=== PATIENT | male | born 1965 | race Caucasian/White ===

== ENCOUNTER → 2018-12-09 08:24 | Outpatient (CLI) | payer OTHER, MEDICAID, SELFPAY ==
[2018-12-09 09:46] LABS: Add Manual Diff / Slide Review NO; Basophils Absolute Auto 100 /uL (0-100); Basophils Percent Auto 0.5 % (0-2); Eosinophils Absolute Auto 0 /uL (0-450); Eosinophils Percent Auto 0.2 % (2-4); Hematocrit 40.8 % (41-53); Hemoglobin 13.7 g/dL (13.5-17.5); Lymphocytes Absolute Auto 1600 /uL (1100-4500); Lymphocytes Percent Auto 14.4 % (25-40); Mean Corpuscular HGB Conc 33.7 % (30-36); Mean Corpuscular Hemoglobin 29.3 PG (26-34); Mean Corpuscular Volume 87.1 fL (80-100); Monocytes Absolute Auto 700 /uL (0-900); Monocytes Percent Auto 6.6 % (3-14); Neutrophils Absolute Auto 8700 /uL (1500-7000); Neutrophils Percent Auto 78.3 % (50-75); Platelet Count 289 X10^3/uL (150-400); Red Blood Cell Count 4.69 X10^6/uL (4.5-5.9); Red Cell Distribution Width 13.1 % (11.6-14.8); White Blood Cell Count 11.2 X10^3/uL (4.5-11.0)
[2018-12-09 10:11] LABS: Alanine Aminotransferase 27 IU/L (21-72); Albumin 4.5 g/dL (3.5-5.0); Albumin Globulin Ratio 1.7 (1.0-2.8); Alkaline Phosphatase 76 U/L (38-126); Aspartate Aminotransferase 31 IU/L (17-59); BUN Creatinine Ratio 21.7 (6-22); Bilirubin Total 0.4 mg/dL (0.2-1.3); Blood Urea Nitrogen 13 mg/dL (9-20); Calcium 9.3 mg/dL (8.4-10.2); Carbon Dioxide 26 mmol/L (22-32); Chloride 99 mmol/L (98-107); Estimated Glomerular Filt Rate > 60.0 mL/min (>60); Globulin 2.7 g/dL (1.7-4.1); Glucose 87 mg/dL (70-100); HEMOLYSIS 40 (0-50); Potassium 4.6 mmol/L (3.4-5.1); Sodium 137 mmol/L (137-145); Total Protein 7.2 g/dL (6.3-8.2)
[2018-12-09 10:43] LABS: Hepatitis B Surface Antigen NEGATIVE s/c (NEGATIVE)
[2018-12-09 12:38] LABS: Hep C Virus Ab w/Reflex Quant REACTIVE s/c (NEGATIVE)
[2018-12-10 15:13] LABS: Hepatitis A Antibody IgM Nonreactive (Nonreactive); Hepatitis B Core IgM Nonreactive (Nonreactive); Hepatitis B Surf Ab Qualitativ Reactive (Nonreactive)
== END ==
PROVIDERS: Visit Provider Family Medicine
DX: Z13.818 Encounter for screening for other digestive system disorders (principal); Z13.228 Encounter for screening for other metabolic disorders; Z11.59 Encounter for screening for other viral diseases
CPT/HCPCS: 36415; 80053; 85025; 86705; 86706; 86709; 86803; 87340; 87522

== ENCOUNTER 2018-12-29 09:57 | Emergency (ER) | payer OTHER, MEDICAID, SELFPAY ==
[2018-12-29 10:09] VITALS: BP 131/81; PULSE 80; RESP 14; TEMP 36.5; O2SAT 99; BMI 26.6
[2018-12-29 11:16] VITALS: BP 124/72; PULSE 80; RESP 16; O2SAT 99
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
[2018-12-29 12:00] VITALS: BP 116/75; PULSE 70; RESP 17; O2SAT 100
[2018-12-29 13:00] VITALS: BP 115/75; O2SAT 97
--- NOTE | 2018-12-29 13:13 | PC.NURSE ---
Applied bandage per provider order.
== END 2018-12-29 13:14 | disposition home or self-care (01) ==
PROVIDERS: Emergency Provider Emergency Medicine
DX: L02.415 Cutaneous abscess of right lower limb (principal)
CPT/HCPCS: 10060; 87070; 87075; 87077; 87147; 87186; 87205; 99283

== ENCOUNTER → 2021-11-03 13:05 | Outpatient (CLI) | payer OTHER, MEDICAID, SELFPAY ==
--- NOTE | 2021-11-03 | DI.ECHO.S_ITS ---
[facility]---------+ [facility] +---------+ : : [address] : : : : [place] : : : : [id number] : : : : Phone: [phone]---------+ Echocardiogram Report + + :Name: WALTER BROOKS Study Date: 11/03/2021 Height: 69 in : :[facility] ReadingLocation: Weight: 187 lb : : Gender: Male BSA: 2.0 m2 : :: 1965 Age: 56 yrs BP: 124/85 mmHg: :Reason For Study: Abnormal ECG : : Performed By: Kingston Caraballo : :Referring: UNSPECIFIED : + + Interpretation Summary The left ventricle is normal in size and wall thickness. The ejection fraction is estimated to be 60-65%. The right ventricle is normal in size and function. No significant valvular pathology seen. The aortic arch is mildly enlarged. Procedure: A two-dimensional transthoracic echocardiogram with color flow and Doppler was performed. The study quality was technically adequate. There is no prior echocardiogram noted for this patient. The subcostal views were not obtained due to poor window and patient could not tolerate. The patient was in normal sinus rhythm during the exam. Left Ventricle: The left ventricle is normal in size and wall thickness. A false chord is noted (normal variant). Trabeculae near apex are visualized. No thrombus is observed. The ejection fraction is estimated to be 60-65%. There are no focal wall motion abnormalities. Diastolic parameters suggest a relaxation abnormality of the left ventricle, consistent with probable normal filling pressures. Right Ventricle: The right ventricle is normal in size and function. Atria: The left atrial size is normal. Right atrial size is normal. There is no Doppler evidence for an interatrial shunt. Mitral Valve: The mitral valve is normal. There is no mitral regurgitation noted. Aortic Valve: The aortic valve is trileaflet. The aortic valve opens well. There is no aortic valve stenosis. No aortic regurgitation is present. Tricuspid Valve: The tricuspid valve is normal. Pulmonary artery pressures cannot be estimated because of the lack of a measurable TR jet velocity. There is trace tricuspid regurgitation. Pulmonic Valve: The pulmonic valve is normal in structure and function. Great Vessels: The aortic root is normal size. The ascending aorta is normal in size. The aortic arch is mildly enlarged. The inferior vena cava was not visualized. Pericardium/ Pleura There is no pericardial effusion. There is an anterior echo-free space consistent with a fat pad. There is no pleural effusion. MMode/2D Measurements & Calculations LVIDd: 4.8 cm LVOT diam: 2.4 cm LVIDs: 2.8 cm Ao root diam: 3.3 cm FS: 41.6 % asc Aorta Diam: 3.4 cm IVSd: 1.0 cm Ao Arch Diam (Prox Trans): 3.7 cm LVPWd: 0.80 cm LV tracey. diameter/BSA (cm/m^2): 2.4 LV sys. diameter/BSA (cm/m^2): 1.4 LA A2 area: 14.9 cm2 RA long axis: 4.6 cm LA A4 area: 10.9 cm2 RA area: 13.7 cm2 LA length (vol): 4.5 cm RA vol: 35.2 ml LA vol: 30.7 ml RA : 17.5 ml/m2 LA vol index: 15.3 ml/m2 TAPSE: 1.9 cm Doppler Measurements & Calculations Ao V2 max: 143.5 cm/sec LVOT Max Jose M: 127.0 cm/sec Ao V2 mean: 104.9 cm/sec LV V1 max P.5 mmHg Ao max P.2 mmHg LV V1 VTI: 25.1 cm Ao mean P.8 mmHg JESSICA(I,D): 4.1 cm2 Ao V2 VTI: 27.5 cm JESSICA(V,D): 3.9 cm2 sev ratio: 0.91 JESSICA indexed to BSA (cm^2/m^2): 2.0 MV E max jose m: 60.3 cm/sec PA V2 max: 96.7 cm/sec MV A max jose m: 63.2 cm/sec PA V2 mean: 77.0 cm/sec MV E/A: 0.95 PA mean P.5 mmHg Med Peak E' Jose M: 8.5 cm/sec PA pr(Accel): 25.9 mmHg E/E' med: 7.1 Lat Peak E' Jose M: 14.5 cm/sec E/E' lat: 4.1 E/e' average: 5.6 MV dec time: 0.18 sec SV(LVOT): 111.7 ml Reading Physician:03:33 PM
[2021-11-06 22:07] LABS: Hep C Virus Ab w/Reflex Quant REACTIVE s/c (NEGATIVE)
== END ==
PROVIDERS: Referring Provider Internal Medicine Cardiovascular Disease; Visit Provider Internal Medicine Cardiovascular Disease
DX: B18.2 Chronic viral hepatitis C (principal); R94.31 Abnormal electrocardiogram [ECG] [EKG]; I77.89 Other specified disorders of arteries and arterioles
CPT/HCPCS: 36415; 86803; 87522; 93306

== ENCOUNTER 2022-02-21 10:13 | Emergency (ER) | payer OTHER, MEDICAID, SELFPAY ==
[2022-02-21 10:18] VITALS: BP 145/83; PULSE 96; RESP 16; TEMP 36.7; O2SAT 100; BMI 26.6
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
[2022-02-21 11:49] LABS: Add Manual Diff / Slide Review NO; Basophils Absolute Auto 100 /uL (0-100); Basophils Percent Auto 0.4 % (0-2); Eosinophils Absolute Auto 200 /uL (0-450); Eosinophils Percent Auto 1.3 % (2-4); Hematocrit 32.4 % (41-53); Hemoglobin 10.6 g/dL (13.5-17.5); Lymphocytes Absolute Auto 2000 /uL (1100-4500); Lymphocytes Percent Auto 13.9 % (25-40); Mean Corpuscular HGB Conc 32.6 % (30-36); Mean Corpuscular Hemoglobin 25.9 PG (26-34); Mean Corpuscular Volume 79.5 fL (80-100); Monocytes Absolute Auto 1000 /uL (0-900); Monocytes Percent Auto 6.7 % (3-14); Neutrophils Absolute Auto 11300 /uL (1500-7000); Neutrophils Percent Auto 77.7 % (50-75); Platelet Count 347 X10^3/uL (150-400); Red Blood Cell Count 4.08 X10^6/uL (4.5-5.9); Red Cell Distribution Width 14.9 % (11.6-14.8); White Blood Cell Count 14.6 X10^3/uL (4.5-11.0)
[2022-02-21 12:04] LABS: Lactate (Lactic Acid) 0.9 mmol/L (0.7-2.1)
[2022-02-21 12:05] LABS: Alanine Aminotransferase 21 IU/L (<50); Albumin 3.7 g/dL (3.5-5.0); Albumin Globulin Ratio 1.1 (1.0-2.8); Alkaline Phosphatase 85 U/L (38-126); Aspartate Aminotransferase 31 IU/L (17-59); BUN Creatinine Ratio 24.6 (6-22); Bilirubin Total 0.3 mg/dL (0.2-1.3); Blood Urea Nitrogen 15 mg/dL (9-20); Calcium 8.3 mg/dL (8.4-10.2); Carbon Dioxide 28 mmol/L (22-32); Chloride 100 mmol/L (98-107); Estimated Glomerular Filt Rate > 60.0 mL/min (>60); Globulin 3.4 g/dL (1.7-4.1); Glucose 97 mg/dL (70-100); HEMOLYSIS < 15 (0-50); Potassium 4.1 mmol/L (3.4-5.1); Sodium 136 mmol/L (137-145); Total Protein 7.1 g/dL (6.3-8.2)
[2022-02-21 12:21] LABS: Procalcitonin 0.06 ng/mL (<0.5)
[2022-02-21] MEDS: ACETAMINOPHEN 325 MG TABLET 975 MG PO (12:36)
[2022-02-21] MEDS: IBUPROFEN 400 MG TABLET 800 MG PO (12:36)
[2022-02-21 13:20] VITALS: PULSE 65; O2SAT 100
[2022-02-21 13:21] VITALS: BP 115/77
[2022-02-21] MEDS: cefTRIAXone 1,000 MG in SODIUM CHLORIDE 0.9% 100 ML 200 ML IV (13:22)
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
[2022-02-21 14:05] VITALS: BP 124/71; PULSE 77; RESP 16; O2SAT 97
--- NOTE | 2022-02-21 14:06 | PC.NURSE ---
IV removed and pt ambulated out of ED with steady gait
== END 2022-02-21 14:06 | disposition left against medical advice (07) ==
PROVIDERS: Emergency Provider Emergency Medicine
DX: L02.612 Cutaneous abscess of left foot (principal); S60.222A Contusion of left hand, initial encounter; S90.852A Superficial foreign body, left foot, initial encounter; W34.00XA Accidental discharge from unspecified firearms or gun, initial encounter; X58.XXXA Exposure to other specified factors, initial encounter; Z53.29 Procedure and treatment not carried out because of patient's decision for other reasons
CPT/HCPCS: 73130; 73630; 80053; 83605; 84145; 85025; 87070; 87077; 87147; 87186; 87205; 96365; 99284; J0696

== ENCOUNTER 2023-01-17 12:35 | Inpatient (IN) | payer OTHER, MEDICAID, SELFPAY ==
[2023-01-17 12:55] VITALS: BP 121/76; PULSE 77; RESP 18; TEMP 36.9; O2SAT 100; BMI 25.8
--- NOTE | 2023-01-17 16:35 | ED_ITS ---
HPI - Skin/Abscess/Foreign Bdy <PRESLEY Zimmerman - Last Filed: 01/23/23 16:59> General Chief complaint: Skin/Abscess/Foreign Body Stated complaint: Abscess Time Seen by Provider: 01/17/23 16:24 Source: patient Mode of arrival: Ambulatory Limitations: no limitations History of Present Illness HPI narrative: This is a 57-year-old gentleman with history of marijuana, heroin, methampheta mine abuse who presents to the emergency department today with a wound to his left buttock for the last 5 days, but is very large, swollen, red and painful. He is on methadone however states that this is not helping him with his pain. He states he has a history of allergy to amoxicillin from a rash as a child states that he only had that 1 time. Also endorses history of rash with tetracycline but does not remember anything more than a rash to it. Patient endorses having a bright red tongue, states it is not super painful but it is new in it started at the same time is this large wound on his left buttock. Thinks it has 3 abscesses that have grown into one and there is underlying pus surrounded by , very red skin and edema patient can barely light on this part of himself due to the pain.There is no discharge from the wound. Patient denies fever but endorses chills. Related Data Home Medications Medication Instructions Recorded Confirmed methadone 40 mg soluble tablet 120 mg PO DAILY 12/29/18 01/17/23 Previous Rx's Medication Instructions Recorded ciprofloxacin HCl 250 mg tablet 500 mg PO 0700,2100 #50 tabs 01/21/23 sennosides 8.6 mg tablet (senna) 17.2 mg PO BEDTIME #30 tabs 01/21/23 Allergies Allergy/AdvReac Type Severity Reaction Status Date / Time amoxicillin Allergy Severe Anaphylaxis Verified 01/17/23 13:02 tetracycline Allergy Verified 01/17/23 13:02 Review of Systems <PRESLEY Zimmerman - Last Filed: 01/23/23 16:59> Review of Systems ROS Unobtainable: All systems reviewed & are unremarkable except as noted in HPI and below Patient History <PRESLEY Zimmerman - Last Filed: 01/23/23 16:59> Medical History Abscess of skin or subcutaneous tissue Heroin abuse Social History (Updated 12/29/18 @ 12:47 by Dahlia Brito DO) household members: friend(s) Smoking Status: Current every day smoker alcohol intake: current substance use type: heroin and IV drugs Smoking Status: Current every day smoker alcohol intake frequency: holidays/special occasions only Substance Use Type: marijuana, heroin and methamphetamine Exam <PRESLEY Zimmerman - Last Filed: 01/23/23 16:59> Initial Vital Signs Initial Vital Signs: Vital Signs Temperature 98.4 F 01/17/23 12:55 Pulse Rate 77 01/17/23 12:55 Respiratory Rate 18 01/17/23 12:55 Blood Pressure 121/76 01/17/23 12:55 Pulse Oximetry 100 01/17/23 12:55 Oxygen Delivery Method Room Air 01/17/23 12:55 Reviewed vitals signs and nursing notes. General: cooperative, comfortable, in no acute distress, well groomed HEENT: symmetrical facial expressions, moist mucous membranes, patient's tongue is bright red and glassy Cardiovascular: regular rate and rhythm, no peripheral edema, warm extremities Respiratory: normal effort, able to speak in complete sentences, without wheezing, stridor, or abnormal breath sounds. No retractions or tachypnea. GI: abdomen soft, nontender to palpation, nondistended, without masses, rebound tenderness or exquisite tenderness with exam. MSK: moves all extremities, neurovascularly intact, no weakness, normal tone Skin: Left buttock with large erythematous area with outline and fluctuance in the middle concerning for abscess, this is quite large involving the whole left buttock, no perigenital involvement concerning for Susy's gangrene brisk capillary refill, without pallor or erythema Neuro: normal speech and cognition, A&O x3, ambulatory, clear speech Psych: mental status is grossly normal, congruent mood, normal affect, pleasant and cooperative <Rufino Samson DO - Last Filed: 01/18/23 17:42> Initial Vital Signs Initial Vital Signs: Vital Signs Temperature 98.4 F 01/17/23 12:55 Pulse Rate 77 01/17/23 12:55 Respiratory Rate 18 01/17/23 12:55 Blood Pressure 121/76 01/17/23 12:55 Pulse Oximetry 100 01/17/23 12:55 Oxygen Delivery Method Room Air 01/17/23 12:55 <Rufino Samson DO - Last Filed: 01/18/23 17:42> Central Line Placement Right IJ: Time Out Performed: Yes Patient Placed on Monitor/Pulse Ox: Yes Prep: mask, gown and gloves Central Line Prep: Chlorhexidine scrub and sterile drapes applied Local Anesthetic: lidocaine 2% Amount of anesthesia used (mL): 3 Ultrasound Used for Placement: Yes Central Line Lumen Inserted: triple Post Procedure: good blood return, all ports aspirated, flushed, capped and sterile dressing applied Post Procedure X-Ray: tip of catheter in good position and no pneumothorax seen Patient Tolerated Procedure: Well Complications: none Course <PRESLEY Zimmerman - Last Filed: 01/23/23 16:59> Orders Ordered: Discontinued Medications Acetaminophen (Acetaminophen 325 Mg Tablet) 650 mg PO Q6H PRN PRN Reason: Fever/Mild Pain (1-3) Last Admin: 01/18/23 19:38 Dose: 650 mg Documented By: Ciprofloxacin (Ciprofloxacin 250 Mg Tablet) 500 mg PO 0700,2100 [facility] Stop: 02/02/23 23:59 Last Admin: 01/21/23 06:27 Dose: 500 mg Documented By: Admin: 01/20/23 20:24 Dose: 500 mg Documented By: Admin: 01/20/23 13:09 Dose: 500 mg Documented By: YANA Lidocaine HCl 30 ml/ Al Hydrox /Mg Hydrox/Simethicone 30 ml/Nystatin 3,000,000 unit 0 ml MM NOW ONE Stop: 01/17/23 16:33 Last Admin: 01/17/23 20:11 Dose: Not Given Documented By: GC Diphenhydramine HCl (Diphenhydramine 50 Mg/Ml Vial) 25 mg IV NOW ONE Stop: 01/17/23 16:33 Last Admin: 01/17/23 22:49 Dose: Not Given Documented By: [place] Docusate Sodium (Docusate 100 Mg Capsule) 100 mg PO BID [facility] Last Admin: 01/21/23 08:38 Dose: 100 mg Documented By: Admin: 01/20/23 20:24 Dose: 100 mg Documented By: Admin: 01/20/23 08:07 Dose: 100 mg Documented By: Admin: 01/19/23 20:42 Dose: 100 mg Documented By: Admin: 01/19/23 14:30 Dose: 100 mg Documented By: YANA Heparin Sodium (Porcine) (Heparin Flush (Cl/Picc/Mid-Line) 50 Unit/5 Ml Syringe) 50 unit IV BID ROSA M Last Admin: 01/21/23 08:44 Dose: 50 unit Documented By: Admin: 01/20/23 20:24 Dose: 50 unit Documented By: Admin: 01/20/23 08:08 Dose: 50 unit Documented By: Admin: 01/19/23 20:42 Dose: 50 unit Documented By: Admin: 01/19/23 09:39 Dose: 50 unit Documented By: Admin: 01/18/23 20:10 Dose: 50 unit Documented By: Admin: 01/18/23 09:27 Dose: Not Given Documented By: YANA Heparin Sodium (Porcine) (Heparin Flush (Cl/Picc/Mid-Line) 50 Unit/5 Ml Syringe) 50 unit IV PRN PRN PRN Reason: Flush Last Admin: 01/20/23 13:29 Dose: 100 unit Documented By: YANA Hydromorphone HCl (Hydromorphone 1 Mg Inj) 1 mg IV NOW ONE Stop: 01/17/23 16:33 Last Admin: 01/17/23 22:49 Dose: Not Given Documented By: PRITI Hydromorphone HCl (Hydromorphone 1 Mg Inj) 1 mg IM NOW ONE Stop: 01/17/23 18:11 Last Admin: 01/17/23 18:37 Dose: 1 mg Documented By: NOE Hydromorphone HCl (Hydromorphone 0.5 Mg Inj) 1 mg IV Q3H PRN PRN Reason: Pain, Severe (7-10) Hydromorphone HCl (Hydromorphone 1 Mg Inj) 1 mg IV Q3H PRN PRN Reason: Pain, Severe (7-10) Last Admin: 01/19/23 13:31 Dose: 1 mg Documented By: Admin: 01/19/23 12:34 Dose: 1 mg Documented By: Admin: 01/18/23 19:39 Dose: 1 mg Documented By: Admin: 01/18/23 07:58 Dose: 1 mg Documented By: YANA Hydromorphone HCl (Hydromorphone 2 Mg Inj) 0 mg IV Q5M PRN PRN Reason: Pain, Severe (7-10) Hydromorphone HCl (Hydromorphone 2 Mg Inj) 2 mg IV DAILY PRN PRN Reason: With dressing change Last Admin: 01/20/23 14:56 Dose: 2 mg Documented By: YANA Sodium Chloride (Normal Saline 0.9%) 1,000 mls @ 1,000 mls/hr IV BOLUS ONE Stop: 01/17/23 17:29 Last Infusion: 01/17/23 21:01 Dose: 0 mls/hr Documented By: Admin: 01/17/23 19:59 Dose: 1,000 mls/hr Documented By: GC Ceftriaxone Sodium 2,000 mg/ (Sodium Chloride) 100 mls @ 200 mls/hr IV NOW ONE Stop: 01/17/23 16:31 Last Infusion: 01/17/23 20:22 Dose: 0 mls/hr Documented By: Admin: 01/17/23 19:50 Dose: 200 mls/hr Documented By: GC Vancomycin HCl/Dextrose (Vancomycin) 2,000 mg in 400 mls @ 200 mls/hr IV NOW ONE Stop: 01/17/23 18:44 Last Infusion: 01/17/23 22:20 Dose: 0 mls/hr Documented By: Admin: 01/17/23 20:10 Dose: 200 mls/hr Documented By: GC Ceftriaxone Sodium 1,000 mg/ (Sodium Chloride) 100 mls @ 200 mls/hr IV Q24H [facility] Last Admin: 01/19/23 20:41 Dose: 200 mls/hr Documented By: Infusion: 01/18/23 19:57 Dose: 200 mls/hr Documented By: Admin: 01/18/23 19:27 Dose: 200 mls/hr Documented By: MS Sodium Chloride (Normal Saline 0.9%) 1,000 mls @ 150 mls/hr IV CONT [facility] Last Admin: 01/17/23 23:10 Dose: 150 mls/hr Documented By: MS Vancomycin HCl (Vancomycin) 1,250 mg in 250 mls @ 250 mls/hr IV Q8H [facility] Last Admin: 01/18/23 16:11 Dose: Not Given Documented By: Infusion: 01/18/23 09:27 Dose: 0 mls/hr Documented By: Admin: 01/18/23 07:47 Dose: 250 mls/hr Documented By: YANA Lactated Ringer's (Lactated Ringers) 1,000 mls @ 100 mls/hr IV NOW ONE Stop: 01/19/23 00:13 Last Admin: 01/18/23 14:14 Dose: 100 mls/hr Documented By: LU Vancomycin HCl (Vancomycin) 1,250 mg in 250 mls @ 250 mls/hr IV Q8H ROSA M Vancomycin HCl (Vancomycin) 1,250 mg in 250 mls @ 250 mls/hr IV Q8H ROSA M Vancomycin HCl (Vancomycin) 1,250 mg in 250 mls @ 250 mls/hr IV Q8H [facility] Last Admin: 01/19/23 10:42 Dose: Not Given Documented By: Infusion: 01/19/23 02:45 Dose: 250 mls/hr Documented By: Admin: 01/19/23 01:43 Dose: 250 mls/hr Documented By: Infusion: 01/18/23 18:33 Dose: 0 mls/hr Documented By: Admin: 01/18/23 16:57 Dose: 250 mls/hr Documented By: YANA Vancomycin HCl/Dextrose (Vancomycin) 1,500 mg in 300 mls @ 200 mls/hr IV Q8H [facility] Last Infusion: 01/20/23 13:08 Dose: 0 mls/hr Documented By: Admin: 01/20/23 11:33 Dose: 200 mls/hr Documented By: Infusion: 01/20/23 07:57 Dose: 0 mls/hr Documented By: Admin: 01/20/23 02:47 Dose: 200 mls/hr Documented By: Infusion: 01/19/23 19:13 Dose: 200 mls/hr Documented By: Admin: 01/19/23 17:43 Dose: 200 mls/hr Documented By: Infusion: 01/19/23 12:38 Dose: 0 mls/hr Documented By: Admin: 01/19/23 10:30 Dose: 200 mls/hr Documented By: YANA Ketorolac Tromethamine (Ketorolac 30 Mg/Ml Vial) 15 mg IV NOW ONE Stop: 01/17/23 16:41 Last Admin: 01/17/23 20:00 Dose: 15 mg Documented By: ARIELLE Lorazepam (Lorazepam 2 Mg/Ml Inj) 0.25 mg IV NOW PRN PRN Reason: Anxiety Last Admin: 01/18/23 16:15 Dose: 0.25 mg Documented By: Admin: 01/18/23 16:14 Dose: 0.25 mg Documented By: EDUAR Methadone HCl (Methadone 10 Mg Tablet) 120 mg PO DAILY ONE Stop: 01/18/23 12:01 Last Admin: 01/18/23 12:02 Dose: 120 mg Documented By: YANA Methadone HCl (Methadone 10 Mg Tablet) 120 mg PO DAILY [facility] Last Admin: 01/21/23 08:38 Dose: 120 mg Documented By: Admin: 01/20/23 10:46 Dose: 120 mg Documented By: Admin: 01/19/23 09:39 Dose: 120 mg Documented By: YANA Metoclopramide HCl (Metoclopramide 10 Mg/2 Ml Inj) 5 mg IV Q6H PRN PRN Reason: Nausea And Vomiting Naloxone HCl (Naloxone 0.4 Mg/Ml Vial) 0.2 mg IV Q2MIN PRN PRN Reason: Opiate Reversal Ondansetron HCl (Ondansetron 4 Mg/2 Ml Inj) 4 mg IV Q6HR PRN PRN Reason: Nausea And Vomiting Ondansetron HCl (Ondansetron 4 Mg/2 Ml Inj) 4 mg IV NOW PRN PRN Reason: Nausea And Vomiting Oxycodone HCl (Oxycodone Ir 5 Mg Tablet) 5 mg PO Q3H PRN PRN Reason: Pain, Moderate (4-6) Polyethylene Glycol (Polyethylene Glycol 3350 17 Gm Powd.Pack) 17 gm PO BID PRN PRN Reason: Constipation Last Admin: 01/19/23 14:30 Dose: 17 gm Documented By: YANA Sennosides (Sennosides 8.6 Mg Tablet) 17.2 mg PO BEDTIME [facility] Last Admin: 01/20/23 20:24 Dose: 17.2 mg Documented By: Admin: 01/19/23 20:42 Dose: 17.2 mg Documented By: Sodium Chloride (Sodium Chloride 0.9% Flush) 10 ml IV PRN PRN PRN Reason: Flush Sodium Chloride (Sodium Chloride 0.9% Flush) 10 ml IV BID ROSA M Last Admin: 01/21/23 08:44 Dose: 10 ml Documented By: Admin: 01/20/23 20:24 Dose: 10 ml Documented By: MARTHA Vancomycin HCl (Vancomycin Per Pharmacy) 1 request MISC NOW ONE Stop: 01/17/23 16:31 Last Admin: 01/17/23 20:11 Dose: Not Given Documented By: ARIELLE Vancomycin HCl (Vancomycin Trough) 1 request MISC 0900 ONE Stop: 01/19/23 09:01 Last Admin: 01/19/23 09:40 Dose: 1 request Documented By: YANA Vancomycin HCl (Vancomycin Trough) 1 request MISC 1000 ONE Stop: 01/20/23 10:01 Last Admin: 01/20/23 10:40 Dose: Not Given Documented By: YANA Vital Signs Vital signs: Vital Signs - 8 hr 01/17/23 12:55 01/17/23 17:01 Temperature 98.4 F Pulse Rate 77 85 Respiratory Rate 18 Blood Pressure 121/76 124/68 Pulse Oximetry 100 100 Oxygen Delivery Method Room Air Room Air <Rufino Samson DO - Last Filed: 01/18/23 17:42> Orders Ordered: Discontinued Medications Acetaminophen (Acetaminophen 325 Mg Tablet) 650 mg PO Q6H PRN PRN Reason: Fever/Mild Pain (1-3) Last Admin: 01/18/23 19:38 Dose: 650 mg Documented By: Ciprofloxacin (Ciprofloxacin 250 Mg Tablet) 500 mg PO 0700,2100 ROSA M Stop: 02/02/23 23:59 Last Admin: 01/21/23 06:27 Dose: 500 mg Documented By: Admin: 01/20/23 20:24 Dose: 500 mg Documented By: Admin: 01/20/23 13:09 Dose: 500 mg Documented By: YANA Lidocaine HCl 30 ml/ Al Hydrox /Mg Hydrox/Simethicone 30 ml/Nystatin 3,000,000 unit 0 ml MM NOW ONE Stop: 01/17/23 16:33 Last Admin: 01/17/23 20:11 Dose: Not Given Documented By: ARIELLE Diphenhydramine HCl (Diphenhydramine 50 Mg/Ml Vial) 25 mg IV NOW ONE Stop: 01/17/23 16:33 Last Admin: 01/17/23 22:49 Dose: Not Given Documented By: PRITI Docusate Sodium (Docusate 100 Mg Capsule) 100 mg PO BID [facility] Last Admin: 01/21/23 08:38 Dose: 100 mg Documented By: Admin: 01/20/23 20:24 Dose: 100 mg Documented By: Admin: 01/20/23 08:07 Dose: 100 mg Documented By: Admin: 01/19/23 20:42 Dose: 100 mg Documented By: Admin: 01/19/23 14:30 Dose: 100 mg Documented By: YANA Heparin Sodium (Porcine) (Heparin Flush (Cl/Picc/Mid-Line) 50 Unit/5 Ml Syringe) 50 unit IV BID [facility] Last Admin: 01/21/23 08:44 Dose: 50 unit Documented By: Admin: 01/20/23 20:24 Dose: 50 unit Documented By: Admin: 01/20/23 08:08 Dose: 50 unit Documented By: Admin: 01/19/23 20:42 Dose: 50 unit Documented By: Admin: 01/19/23 09:39 Dose: 50 unit Documented By: Admin: 01/18/23 20:10 Dose: 50 unit Documented By: Admin: 01/18/23 09:27 Dose: Not Given Documented By: YANA Heparin Sodium (Porcine) (Heparin Flush (Cl/Picc/Mid-Line) 50 Unit/5 Ml Syringe) 50 unit IV PRN PRN PRN Reason: Flush Last Admin: 01/20/23 13:29 Dose: 100 unit Documented By: YANA Hydromorphone HCl (Hydromorphone 1 Mg Inj) 1 mg IV NOW ONE Stop: 01/17/23 16:33 Last Admin: 01/17/23 22:49 Dose: Not Given Documented By: PRITI Hydromorphone HCl (Hydromorphone 1 Mg Inj) 1 mg IM NOW ONE Stop: 01/17/23 18:11 Last Admin: 01/17/23 18:37 Dose: 1 mg Documented By: NOE Hydromorphone HCl (Hydromorphone 0.5 Mg Inj) 1 mg IV Q3H PRN PRN Reason: Pain, Severe (7-10) Hydromorphone HCl (Hydromorphone 1 Mg Inj) 1 mg IV Q3H PRN PRN Reason: Pain, Severe (7-10) Last Admin: 01/19/23 13:31 Dose: 1 mg Documented By: Admin: 01/19/23 12:34 Dose: 1 mg Documented By: Admin: 01/18/23 19:39 Dose: 1 mg Documented By: Admin: 01/18/23 07:58 Dose: 1 mg Documented By: YANA Hydromorphone HCl (Hydromorphone 2 Mg Inj) 0 mg IV Q5M PRN PRN Reason: Pain, Severe (7-10) Hydromorphone HCl (Hydromorphone 2 Mg Inj) 2 mg IV DAILY PRN PRN Reason: With dressing change Last Admin: 01/20/23 14:56 Dose: 2 mg Documented By: YANA Sodium Chloride (Normal Saline 0.9%) 1,000 mls @ 1,000 mls/hr IV BOLUS ONE Stop: 01/17/23 17:29 Last Infusion: 01/17/23 21:01 Dose: 0 mls/hr Documented By: Admin: 01/17/23 19:59 Dose: 1,000 mls/hr Documented By: ARIELLE Ceftriaxone Sodium 2,000 mg/ (Sodium Chloride) 100 mls @ 200 mls/hr IV NOW ONE Stop: 01/17/23 16:31 Last Infusion: 01/17/23 20:22 Dose: 0 mls/hr Documented By: Admin: 01/17/23 19:50 Dose: 200 mls/hr Documented By: GC Vancomycin HCl/Dextrose (Vancomycin) 2,000 mg in 400 mls @ 200 mls/hr IV NOW ONE Stop: 01/17/23 18:44 Last Infusion: 01/17/23 22:20 Dose: 0 mls/hr Documented By: Admin: 01/17/23 20:10 Dose: 200 mls/hr Documented By: GC Ceftriaxone Sodium 1,000 mg/ (Sodium Chloride) 100 mls @ 200 mls/hr IV Q24H [facility] Last Admin: 01/19/23 20:41 Dose: 200 mls/hr Documented By: Infusion: 01/18/23 19:57 Dose: 200 mls/hr Documented By: Admin: 01/18/23 19:27 Dose: 200 mls/hr Documented By: MS Sodium Chloride (Normal Saline 0.9%) 1,000 mls @ 150 mls/hr IV CONT ROSA M Last Admin: 01/17/23 23:10 Dose: 150 mls/hr Documented By: Vancomycin HCl (Vancomycin) 1,250 mg in 250 mls @ 250 mls/hr IV Q8H ROSA M Last Admin: 01/18/23 16:11 Dose: Not Given Documented By: Infusion: 01/18/23 09:27 Dose: 0 mls/hr Documented By: Admin: 01/18/23 07:47 Dose: 250 mls/hr Documented By: YANA Lactated Ringer's (Lactated Ringers) 1,000 mls @ 100 mls/hr IV NOW ONE Stop: 01/19/23 00:13 Last Admin: 01/18/23 14:14 Dose: 100 mls/hr Documented By: LU Vancomycin HCl (Vancomycin) 1,250 mg in 250 mls @ 250 mls/hr IV Q8H ROSA M Vancomycin HCl (Vancomycin) 1,250 mg in 250 mls @ 250 mls/hr IV Q8H ROSA M Vancomycin HCl (Vancomycin) 1,250 mg in 250 mls @ 250 mls/hr IV Q8H [facility] Last Admin: 01/19/23 10:42 Dose: Not Given Documented By: Infusion: 01/19/23 02:45 Dose: 250 mls/hr Documented By: Admin: 01/19/23 01:43 Dose: 250 mls/hr Documented By: Infusion: 01/18/23 18:33 Dose: 0 mls/hr Documented By: Admin: 01/18/23 16:57 Dose: 250 mls/hr Documented By: YANA Vancomycin HCl/Dextrose (Vancomycin) 1,500 mg in 300 mls @ 200 mls/hr IV Q8H [facility] Last Infusion: 01/20/23 13:08 Dose: 0 mls/hr Documented By: Admin: 01/20/23 11:33 Dose: 200 mls/hr Documented By: Infusion: 01/20/23 07:57 Dose: 0 mls/hr Documented By: Admin: 01/20/23 02:47 Dose: 200 mls/hr Documented By: Infusion: 01/19/23 19:13 Dose: 200 mls/hr Documented By: Admin: 01/19/23 17:43 Dose: 200 mls/hr Documented By: Infusion: 01/19/23 12:38 Dose: 0 mls/hr Documented By: Admin: 01/19/23 10:30 Dose: 200 mls/hr Documented By: YANA Ketorolac Tromethamine (Ketorolac 30 Mg/Ml Vial) 15 mg IV NOW ONE Stop: 01/17/23 16:41 Last Admin: 01/17/23 20:00 Dose: 15 mg Documented By: ARIELLE Lorazepam (Lorazepam 2 Mg/Ml Inj) 0.25 mg IV NOW PRN PRN Reason: Anxiety Last Admin: 01/18/23 16:15 Dose: 0.25 mg Documented By: Admin: 01/18/23 16:14 Dose: 0.25 mg Documented By: EDUAR Methadone HCl (Methadone 10 Mg Tablet) 120 mg PO DAILY ONE Stop: 01/18/23 12:01 Last Admin: 01/18/23 12:02 Dose: 120 mg Documented By: YANA Methadone HCl (Methadone 10 Mg Tablet) 120 mg PO DAILY [facility] Last Admin: 01/21/23 08:38 Dose: 120 mg Documented By: Admin: 01/20/23 10:46 Dose: 120 mg Documented By: Admin: 01/19/23 09:39 Dose: 120 mg Documented By: YANA Metoclopramide HCl (Metoclopramide 10 Mg/2 Ml Inj) 5 mg IV Q6H PRN PRN Reason: Nausea And Vomiting Naloxone HCl (Naloxone 0.4 Mg/Ml Vial) 0.2 mg IV Q2MIN PRN PRN Reason: Opiate Reversal Ondansetron HCl (Ondansetron 4 Mg/2 Ml Inj) 4 mg IV Q6HR PRN PRN Reason: Nausea And Vomiting Ondansetron HCl (Ondansetron 4 Mg/2 Ml Inj) 4 mg IV NOW PRN PRN Reason: Nausea And Vomiting Oxycodone HCl (Oxycodone Ir 5 Mg Tablet) 5 mg PO Q3H PRN PRN Reason: Pain, Moderate (4-6) Polyethylene Glycol (Polyethylene Glycol 3350 17 Gm Powd.Pack) 17 gm PO BID PRN PRN Reason: Constipation Last Admin: 01/19/23 14:30 Dose: 17 gm Documented By: YANA Sennosides (Sennosides 8.6 Mg Tablet) 17.2 mg PO BEDTIME [facility] Last Admin: 01/20/23 20:24 Dose: 17.2 mg Documented By: Admin: 01/19/23 20:42 Dose: 17.2 mg Documented By: Sodium Chloride (Sodium Chloride 0.9% Flush) 10 ml IV PRN PRN PRN Reason: Flush Sodium Chloride (Sodium Chloride 0.9% Flush) 10 ml IV BID [facility] Last Admin: 01/21/23 08:44 Dose: 10 ml Documented By: Admin: 01/20/23 20:24 Dose: 10 ml Documented By: MARTHA Vancomycin HCl (Vancomycin Per Pharmacy) 1 request MISC NOW ONE Stop: 01/17/23 16:31 Last Admin: 01/17/23 20:11 Dose: Not Given Documented By: ARIELLE Vancomycin HCl (Vancomycin Trough) 1 request MISC 0900 ONE Stop: 01/19/23 09:01 Last Admin: 01/19/23 09:40 Dose: 1 request Documented By: YANA Vancomycin HCl (Vancomycin Trough) 1 request MISC 1000 ONE Stop: 01/20/23 10:01 Last Admin: 01/20/23 10:40 Dose: Not Given Documented By: YANA Consultations Consultation #1: discussed with circulation librarian surgeon (Clark) no OR time tonight, asks that we keep NPO, ABX, admit to hospitalist Consultation #2: hospitalist happy to accept Vital Signs Vital signs: Vital Signs - 8 hr 01/17/23 12:55 01/17/23 17:01 Temperature 98.4 F Pulse Rate 77 85 Respiratory Rate 18 Blood Pressure 121/76 124/68 Pulse Oximetry 100 100 Oxygen Delivery Method Room Air Room Air MDM - Skin/Abscess/Foreign Bdy <Monet Garcia, [facility] - Last Filed: 01/23/23 16:59> Lab Data 01/21/23 05:00 01/21/23 05:00 Labs: Lab Results 01/17/23 01/17/23 01/17/23 Range/Units 19:20 19:20 19:20 WBC 18.1 H (4.5-11.0) X10^3/uL RBC 4.10 L (4.5-5.9) X10^6/uL Hgb 10.8 L (13.5-17.5) g/dL Hct 33.0 L (41-53) % MCV 80.4 (80-100) fL MCH 26.2 (26-34) PG MCHC 32.6 (30-36) % RDW 16.5 H (11.6-14.8) % Plt Count 260 (150-400) X10^3/uL Neut % (Auto) 73.9 (50-75) % Lymph % (Auto) 12.2 L (25-40) % Bucks % (Auto) 12.1 (3-14) % Eos % (Auto) 1.6 L (2-4) % Baso % (Auto) 0.2 (0-2) % Neut # (Auto) 17456 H (3592-1642) /uL Lymph # (Auto) 2200 (2601-5471) /uL Bucks # (Auto) 2200 H (0-900) /uL Eos # (Auto) 300 (0-450) /uL Baso # (Auto) 0 (0-100) /uL Sodium 131 L (137-145) mmol/L Potassium 3.7 (3.4-5.1) mmol/L Chloride 94 L (98-107) mmol/L Carbon Dioxide 30 (22-32) mmol/L BUN 15 (9-20) mg/dL Creatinine 0.54 L (0.66-1.25) mg/dL Estimated GFR > 60 (>60) mL/min BUN/Creatinine Ratio 27.8 H (6-22) Glucose 81 (70-100) mg/dL Lactate 0.7 (0.7-2.1) mmol/L Calcium 8.1 L (8.4-10.2) mg/dL Magnesium 1.7 (1.6-2.3) mg/dL Total Bilirubin 0.4 (0.2-1.3) mg/dL AST 56 (17-59) IU/L ALT 91 H (<50) IU/L Alkaline Phosphatase 380 H (38-126) U/L C-Reactive Protein 20.1 H (<1.0) mg/dL Total Protein 6.5 (6.3-8.2) g/dL Albumin 3.2 L (3.5-5.0) g/dL Globulin 3.3 (1.7-4.1) g/dL Albumin/Globulin Ratio 1.0 (1.0-2.8) A. baumannii (PCR) (Not Detect) Charley albicans (PCR) (Not Detect) C. glabrata (PCR) (Not Detect) C. krusei (PCR) (Not Detect) C. parapsilosis (PCR) (Not Detect) C. tropicalis (PCR) (Not Detect) SARS-CoV-2 (PCR) (Negative) Enterobacteriac sp PCR (Not Detect) E. cloacae complex PCR (Not Detect) Enterococcus sp PCR (Not Detect) E. coli (PCR) (Not Detect) H. influenzae (PCR) (Not Detect) Klebsiella oxytoca PCR (Not Detect) Klebsiella pneumoniae (Not Detect) List. monocytogenes PCR (Not Detect) N. meningitidis (PCR) (Not Detect) Proteus species (PCR) (Not Detect) Serratia marcescens PCR (Not Detect) Staphylococcus sp PCR (Not Detect) Staph aureus (PCR) (Not Detect) mecA-Methicil Res Gene (Not Detect) Streptococcus sp PCR (Not Detect) Group A Strep (PCR) (Not Detect) Strep agalactiae (PCR) (Not Detect) Strep pneumoniae (PCR) (Not Detect) P. aeruginosa (PCR) (Not Detect) KPC-Carbap Res Gene PCR 01/17/23 01/17/23 Range/Units 19:50 21:21 WBC (4.5-11.0) X10^3/uL RBC (4.5-5.9) X10^6/uL Hgb (13.5-17.5) g/dL Hct (41-53) % MCV (80-100) fL MCH (26-34) PG MCHC (30-36) % RDW (11.6-14.8) % Plt Count (150-400) X10^3/uL Neut % (Auto) (50-75) % Lymph % (Auto) (25-40) % Bucks % (Auto) (3-14) % Eos % (Auto) (2-4) % Baso % (Auto) (0-2) % Neut # (Auto) (0688-3354) /uL Lymph # (Auto) (1954-6505) /uL Bucks # (Auto) (0-900) /uL Eos # (Auto) (0-450) /uL Baso # (Auto) (0-100) /uL Sodium (137-145) mmol/L Potassium (3.4-5.1) mmol/L Chloride (98-107) mmol/L Carbon Dioxide (22-32) mmol/L BUN (9-20) mg/dL Creatinine (0.66-1.25) mg/dL Estimated GFR (>60) mL/min BUN/Creatinine Ratio (6-22) Glucose (70-100) mg/dL Lactate (0.7-2.1) mmol/L Calcium (8.4-10.2) mg/dL Magnesium (1.6-2.3) mg/dL Total Bilirubin (0.2-1.3) mg/dL AST (17-59) IU/L ALT (<50) IU/L Alkaline Phosphatase (38-126) U/L C-Reactive Protein (<1.0) mg/dL Total Protein (6.3-8.2) g/dL Albumin (3.5-5.0) g/dL Globulin (1.7-4.1) g/dL Albumin/Globulin Ratio (1.0-2.8) A. baumannii (PCR) Not detected (Not Detect) Charley albicans (PCR) Not detected (Not Detect) C. glabrata (PCR) Not detected (Not Detect) C. krusei (PCR) Not detected (Not Detect) C. parapsilosis (PCR) Not detected (Not Detect) C. tropicalis (PCR) Not detected (Not Detect) SARS-CoV-2 (PCR) Negative (Negative) Enterobacteriac sp PCR Not detected (Not Detect) E. cloacae complex PCR Not detected (Not Detect) Enterococcus sp PCR Not detected (Not Detect) E. coli (PCR) Not detected (Not Detect) H. influenzae (PCR) Not detected (Not Detect) Klebsiella oxytoca PCR Not detected (Not Detect) Klebsiella pneumoniae Not detected (Not Detect) List. monocytogenes PCR Not detected (Not Detect) N. meningitidis (PCR) Not detected (Not Detect) Proteus species (PCR) Not detected (Not Detect) Serratia marcescens PCR Not detected (Not Detect) Staphylococcus sp PCR Detected H (Not Detect) Staph aureus (PCR) Not detected (Not Detect) mecA-Methicil Res Gene Not detected (Not Detect) Streptococcus sp PCR Not detected (Not Detect) Group A Strep (PCR) Not detected (Not Detect) Strep agalactiae (PCR) Not detected (Not Detect) Strep pneumoniae (PCR) Not detected (Not Detect) P. aeruginosa (PCR) Not detected (Not Detect) KPC-Carbap Res Gene PCR Not Reportable MDM Narrative Medical decision making narrative: Chief Complaint: Independent historian: Patient Differential diagnoses include but are not limited to: Necrotizing fasciitis, abscess, large abscess with bony involvement I have independently reviewed the patient's vital signs and nursing notes as well as prior records if available. Pertinent lab findings reviewed: Leukocytosis of 18.1, mild hyponatremia of 131, CRP is 20, respiratory panel is positive for Staphylococcus species via PCR blood cultures pending Pertinent Imaging reviewed: CT abdomen pelvis shows a lobulated thick-walled fluid collection involving the superficial aspect of the left gluteus rick muscle consistent with an absence and no evidence of intraperitoneal extension into the pelvis. It measures 11.3 x 4.5 x 10.4 cm. Course of care: When patient is brought back to room, he has a very large abscess concerning for surgical drainage, strep infection and necrotizing i nfection, he is had 5 days of this getting worse, he is exquisitely tender, fluctuance is present, concerning for tunneling and deep wound. 1800 nursing comes to tell the provider that patient does not have an IV, he is not received his pain medication or antibiotics, he has not received his IV flui d and no lab work has been completed yet. We will call physician that is on- call for General surgery to discuss I&D surgical drainage and take patient for CT without contrast of the pelvis. CT is ordered and is pending. multiple people have tried IV placement attempts and have been unsuccessful. There are no lab set of lab and patient is complaining of pain. Will order Dilaudid IM instead Social considerations that may affect disposition: none Questions are addressed and there is agreement with the plan and for follow-up. Patient is appropriate for outpatient management. MIPS: This encounter doesn't have any diagnosis' associated with MIPS criteria. [1900] ([place]) Patient received in sign out from CERTIFIED OPHTHALMIC TECHNICIAN Crew []. I have reviewed the clinical course and performed an independent history and physical exam. Patient's exam is consistent with the need for surgical intervention, it is ext remely unlikely that appropriate pain control and incision and drainage could be completed in the emergency department at the bedside. I have discussed with General surgery and they share this opinion. Central line has been placed, labs obtained, antibiotics initiated, imaging confirms physical exam. Patient requires hospitalization for ongoing treatment <Rufino Samson DO - Last Filed: 01/18/23 17:42> Lab Data Labs: Lab Results 01/17/23 01/17/23 01/17/23 Range/Units 19:20 19:20 19:20 WBC 18.1 H (4.5-11.0) X10^3/uL RBC 4.10 L (4.5-5.9) X10^6/uL Hgb 10.8 L (13.5-17.5) g/dL Hct 33.0 L (41-53) % MCV 80.4 (80-100) fL MCH 26.2 (26-34) PG MCHC 32.6 (30-36) % RDW 16.5 H (11.6-14.8) % Plt Count 260 (150-400) X10^3/uL Neut % (Auto) 73.9 (50-75) % Lymph % (Auto) 12.2 L (25-40) % [place] % (Auto) 12.1 (3-14) % Eos % (Auto) 1.6 L (2-4) % Baso % (Auto) 0.2 (0-2) % Neut # (Auto) 78500 H (7988-3390) /uL Lymph # (Auto) 2200 (6591-8038) /uL [place] # (Auto) 2200 H (0-900) /uL Eos # (Auto) 300 (0-450) /uL Baso # (Auto) 0 (0-100) /uL Sodium 131 L (137-145) mmol/L Potassium 3.7 (3.4-5.1) mmol/L Chloride 94 L (98-107) mmol/L Carbon Dioxide 30 (22-32) mmol/L BUN 15 (9-20) mg/dL Creatinine 0.54 L (0.66-1.25) mg/dL Estimated GFR > 60 (>60) mL/min BUN/Creatinine Ratio 27.8 H (6-22) Glucose 81 (70-100) mg/dL Lactate 0.7 (0.7-2.1) mmol/L Calcium 8.1 L (8.4-10.2) mg/dL Magnesium 1.7 (1.6-2.3) mg/dL Total Bilirubin 0.4 (0.2-1.3) mg/dL AST 56 (17-59) IU/L ALT 91 H (<50) IU/L Alkaline Phosphatase 380 H (38-126) U/L C-Reactive Protein 20.1 H (<1.0) mg/dL Total Protein 6.5 (6.3-8.2) g/dL Albumin 3.2 L (3.5-5.0) g/dL Globulin 3.3 (1.7-4.1) g/dL Albumin/Globulin Ratio 1.0 (1.0-2.8) A. baumannii (PCR) (Not Detect) Charley albicans (PCR) (Not Detect) C. glabrata (PCR) (Not Detect) C. krusei (PCR) (Not Detect) C. parapsilosis (PCR) (Not Detect) C. tropicalis (PCR) (Not Detect) SARS-CoV-2 (PCR) (Negative) Enterobacteriac sp PCR (Not Detect) E. cloacae complex PCR (Not Detect) Enterococcus sp PCR (Not Detect) E. coli (PCR) (Not Detect) H. influenzae (PCR) (Not Detect) Klebsiella oxytoca PCR (Not Detect) Klebsiella pneumoniae (Not Detect) List. monocytogenes PCR (Not Detect) N. meningitidis (PCR) (Not Detect) Proteus species (PCR) (Not Detect) Serratia marcescens PCR (Not Detect) Staphylococcus sp PCR (Not Detect) Staph aureus (PCR) (Not Detect) mecA-Methicil Res Gene (Not Detect) Streptococcus sp PCR (Not Detect) Group A Strep (PCR) (Not Detect) Strep agalactiae (PCR) (Not Detect) Strep pneumoniae (PCR) (Not Detect) P. aeruginosa (PCR) (Not Detect) KPC-Carbap Res Gene PCR 01/17/23 01/17/23 Range/Units 19:50 21:21 WBC (4.5-11.0) X10^3/uL RBC (4.5-5.9) X10^6/uL Hgb (13.5-17.5) g/dL Hct (41-53) % MCV (80-100) fL MCH (26-34) PG MCHC (30-36) % RDW (11.6-14.8) % Plt Count (150-400) X10^3/uL Neut % (Auto) (50-75) % Lymph % (Auto) (25-40) % [place] % (Auto) (3-14) % Eos % (Auto) (2-4) % Baso % (Auto) (0-2) % Neut # (Auto) (3615-8164) /uL Lymph # (Auto) (9341-1429) /uL [place] # (Auto) (0-900) /uL Eos # (Auto) (0-450) /uL Baso # (Auto) (0-100) /uL Sodium (137-145) mmol/L Potassium (3.4-5.1) mmol/L Chloride (98-107) mmol/L Carbon Dioxide (22-32) mmol/L BUN (9-20) mg/dL Creatinine (0.66-1.25) mg/dL Estimated GFR (>60) mL/min BUN/Creatinine Ratio (6-22) Glucose (70-100) mg/dL Lactate (0.7-2.1) mmol/L Calcium (8.4-10.2) mg/dL Magnesium (1.6-2.3) mg/dL Total Bilirubin (0.2-1.3) mg/dL AST (17-59) IU/L ALT (<50) IU/L Alkaline Phosphatase (38-126) U/L C-Reactive Protein (<1.0) mg/dL Total Protein (6.3-8.2) g/dL Albumin (3.5-5.0) g/dL Globulin (1.7-4.1) g/dL Albumin/Globulin Ratio (1.0-2.8) A. baumannii (PCR) Not detected (Not Detect) Charley albicans (PCR) Not detected (Not Detect) C. glabrata (PCR) Not detected (Not Detect) C. krusei (PCR) Not detected (Not Detect) C. parapsilosis (PCR) Not detected (Not Detect) C. tropicalis (PCR) Not detected (Not Detect) SARS-CoV-2 (PCR) Negative (Negative) Enterobacteriac sp PCR Not detected (Not Detect) E. cloacae complex PCR Not detected (Not Detect) Enterococcus sp PCR Not detected (Not Detect) E. coli (PCR) Not detected (Not Detect) H. influenzae (PCR) Not detected (Not Detect) Klebsiella oxytoca PCR Not detected (Not Detect) Klebsiella pneumoniae Not detected (Not Detect) List. monocytogenes PCR Not detected (Not Detect) N. meningitidis (PCR) Not detected (Not Detect) Proteus species (PCR) Not detected (Not Detect) Serratia marcescens PCR Not detected (Not Detect) Staphylococcus sp PCR Detected H (Not Detect) Staph aureus (PCR) Not detected (Not Detect) mecA-Methicil Res Gene Not detected (Not Detect) Streptococcus sp PCR Not detected (Not Detect) Group A Strep (PCR) Not detected (Not Detect) Strep agalactiae (PCR) Not detected (Not Detect) Strep pneumoniae (PCR) Not detected (Not Detect) P. aeruginosa (PCR) Not detected (Not Detect) KPC-Carbap Res Gene PCR Not Reportable MDM Narrative Medical decision making narrative: Chief Complaint: Independent historian: Patient Differential diagnoses include but are not limited to: I have independently reviewed the patient's vital signs and nursing notes as well as prior records if available. Pertinent lab findings reviewed: Pertinent Imaging reviewed: Clinical decision rules or scores evaluated: Course of care: When patient is brought back to room, he has a very large abscess concerning for surgical drainage, strep infection and necrotizing infection, he is had 5 days of this getting worse, he is exquisitely tender, fluctuance is present, concerning for tunneling and deep wound. 1800 nursing comes to tell the provider that patient does not have an IV, he is not received his pain medication or antibiotics, he has not received his IV fluid and no lab work has been completed yet. We will call physician that is on-call for General surgery to discuss I&D surgical drainage and take patient for CT without contrast of the pelvis. CT is ordered and is pending. multiple people have tried IV placement attempts and have been unsuccessful. There are no lab set of lab and patient is complaining of pain. Will order Dilaudid IM instead Social considerations that may affect disposition: none Questions are addressed and there is agreement with the plan and for follow-up. Patient is appropriate for outpatient management. MIPS: This encounter doesn't have any diagnosis' associated with MIPS criteria. [1900] ([place]) Patient received in sign out from CERTIFIED OPHTHALMIC TECHNICIAN Crew []. I have reviewed the clinical course and performed an independent history and physical exam. Patient's exam is consistent with the need for surgical intervention, it is extremely unlikely that appropriate pain control and incision and drainage could be completed in the emergency department at the bedside. I have discussed with General surgery and they share this opinion. Central line has been placed, labs obtained, antibiotics initiated, imaging confirms physical exam. Patient requires hospitalization for ongoing treatment Discharge Plan Departure Patient Disposition: Admitted As Inpatient Clinical Impression: Abscess of skin or subcutaneous tissue Qualifiers: Site of cutaneous abscess: buttock Qualified Code(s): L02.31 - Cutaneous abscess of buttock Admit Date/Time: 01/17/23 21:38 Admit Provider: Trini Hightower
[2023-01-17 17:01] VITALS: BP 124/68; PULSE 85; O2SAT 100
[2023-01-17] MEDS: HYDROMORPHONE 1 MG INJ IM (18:37)
--- NOTE | 2023-01-17 19:06 | PC.NURSE ---
attempted by multiple nurses, including ultrasound machine. Unable to obtain IV Access. Dr. Samson is placing a central line. I was able to give the patient IM Dilaudid.
--- NOTE | 2023-01-17 19:15 | DI.RAD.S_ITS ---
PROCEDURE: XR CHEST 1V INDICATIONS: line placement TECHNIQUE: One view of the chest was acquired. COMPARISON: None. FINDINGS: Surgical changes and devices: Catheter projects over the right medial apex. Lungs and pleura: Lungs are clear. No pleural effusions or pneumothorax. Mediastinum: Mediastinal contours appear normal. Heart size is normal. Bones and chest wall: No suspicious bony lesions. Overlying soft tissues appear unremarkable. IMPRESSION: No acute process. Dictated by: Elgin Turcios M.D. on 01/17/2023 at 19:37 Approved by: Elgin Turcios M.D. on 01/17/2023 at 19:37
[2023-01-17 19:36] LABS: Add Manual Diff / Slide Review NO; Basophils Absolute Auto 0 /uL (0-100); Basophils Percent Auto 0.2 % (0-2); Eosinophils Absolute Auto 300 /uL (0-450); Eosinophils Percent Auto 1.6 % (2-4); Hemoglobin 10.8 g/dL (13.5-17.5); Lymphocytes Absolute Auto 2200 /uL (1100-4500); Lymphocytes Percent Auto 12.2 % (25-40); Mean Corpuscular HGB Conc 32.6 % (30-36); Mean Corpuscular Hemoglobin 26.2 PG (26-34); Mean Corpuscular Volume 80.4 fL (80-100); Monocytes Absolute Auto 2200 /uL (0-900); Monocytes Percent Auto 12.1 % (3-14); Neutrophils Absolute Auto 13400 /uL (1500-7000); Neutrophils Percent Auto 73.9 % (50-75); Platelet Count 260 X10^3/uL (150-400); Red Cell Distribution Width 16.5 % (11.6-14.8); White Blood Cell Count 18.1 X10^3/uL (4.5-11.0)
[2023-01-17 19:49] LABS: Alanine Aminotransferase 91 IU/L (<50); Albumin 3.2 g/dL (3.5-5.0); Alkaline Phosphatase 380 U/L (38-126); Aspartate Aminotransferase 56 IU/L (17-59); BUN Creatinine Ratio 27.8 (6-22); Bilirubin Total 0.4 mg/dL (0.2-1.3); Blood Urea Nitrogen 15 mg/dL (9-20); Calcium 8.1 mg/dL (8.4-10.2); Carbon Dioxide 30 mmol/L (22-32); Chloride 94 mmol/L (98-107); Estimated Glomerular Filt Rate > 60 mL/min (>60); Globulin 3.3 g/dL (1.7-4.1); Glucose 81 mg/dL (70-100); HEMOLYSIS < 15 (0-50); Magnesium 1.7 mg/dL (1.6-2.3); Potassium 3.7 mmol/L (3.4-5.1); Sodium 131 mmol/L (137-145); Total Protein 6.5 g/dL (6.3-8.2)
[2023-01-17 19:50] LABS: Lactate (Lactic Acid) 0.7 mmol/L (0.7-2.1)
[2023-01-17] MEDS: cefTRIAXone 2,000 MG in SODIUM CHLORIDE 0.9% 100 ML 200 MG IV (19:50)
[2023-01-17] MEDS: SODIUM CHLORIDE 0.9% 1,000 ML 1000 ML IV (19:59)
[2023-01-17] MEDS: KETOROLAC 30 MG/ML VIAL 15 MG IV (20:00)
--- NOTE | 2023-01-17 20:07 | DI.CT.S_ITS ---
PROCEDURE: CT PELVIS W CON INDICATIONS: large, abscess L buttock TECHNIQUE: After the administration of intravenous contrast, 5 mm thick sections acquired from the iliac crests to the symphysis. 5 mm coronal and sagittal reformats were acquired. For radiation dose reduction, the following was used: automated exposure control, adjustment of mA and/or kV according to patient size. COMPARISON: None. FINDINGS: Image quality: Excellent. Peritoneum and bowel: Visualized bowel loops demonstrate normal wall thickness and caliber. No free fluid or air. Genitourinary: Bladder wall thickness is normal. Nodes and vessels: No iliac, pelvic, or inguinal adenopathy by size criteria. There are a few prominent left iliac lymph nodes measuring up to 0.8 cm on series 2, image 8 which are likely reactive. Iliac vessels demonstrate normal size and enhancement. Bones: No suspicious bony lesions. Miscellaneous: No inguinal hernias. There is a lobulated thick-walled subcutaneous fluid collection in the left gluteal region involving the superficial aspect of the left gluteus rick muscle which demonstrates asymmetric edema and enlargement. This measures approximately 11.3 x 4.5 x 10.4 cm. There is adjacent subcutaneous edema in the left gluteal region. No sinus tracts or intraperitoneal extension. IMPRESSION: 1. Lobulated thick-walled fluid collection involving the superficial aspect of the left gluteus rick muscle consistent with an abscess. 2. No evidence of intraperitoneal extension into the pelvis. Dictated by: Dilshad Feliciano M.D. on 01/17/2023 at 20:39 Approved by: Dilshad Feliciano M.D. on 01/17/2023 at 20:43
[2023-01-17] MEDS: VANCOMYCIN 2,000 MG/400 ML PIGGYBACK 200 MG IV (20:10)
[2023-01-17 20:47] LABS: C-Reactive Protein Quant 20.1 mg/dL (<1.0)
[2023-01-17 21:38] LABS: COVID19 -Nasal RAPID Negative (Negative)
[2023-01-17 22:28] VITALS: BMI 25.0
--- NOTE | 2023-01-17 22:44 | P.HP_ITS ---
History of Present Illness History of Present Illness Date Patient Seen: 01/17/23 Time Patient Seen: 22:44 Chief complaint: Abscess Narrative: Rosalio Liangis a 57-year-old gentleman with history of marijuana, heroin, methamphetamine abuse and MRSA abscess who presented to the emergency department today with a wound to his left buttock for the last 5-7 days. States it started to hurt immediately after injecting himself and became very large, swollen, red and painful.? He is on methadone maintenance, stating he takes 120 mg daily however states that this is not helping him with his pain, last taken this morning.? He is seen at the [facility]. He endorses having a bright red tongue, states it is not super painful but it is new in it started at the same time is this large wound on his left buttock.? States he thinks it started with 3 discrete abscesses that have grown into one and there is underlying pus surrounded by, very red skin and swelling. Patient can barely lie on it due to the pain. There is no discharge from the wound, but after receiving his first dose of antibiotic, states it feels less painful.? Patient denies fever but endo rses chills and has had some nausea but no vomiting. Chest xray ordered in the ED was unremarkable, pelvis CT reported: There is a lobulated thick-walled subcutaneous fluid collection in the left gluteal region involving the superficial aspect of the left gluteus rick muscle which dem onstrates asymmetric edema and enlargement.? This measures approximately 11.3 x 4.5 x 10.4 cm.? There is adjacent subcutaneous edema in the left gluteal region.? No sinus tracts or intraperitoneal extension. He is afebrile, blood pressure 126/71 heart rate 74 respiratory rate 20 oxygen saturation of 96% on room air he weighs 77 kg with a BMI of 25. He does have an elevated white count of 18.1 with a left shift, mildly anemic with a hemoglobin and hematocrit of 10.8 and 33 sodium is 131 chloride 94 creatinine 0.54 ALT is 91 Alk-phos 380 CRP is 20.1 albumin 3.2 and COVID-19 PCR is negative. Patient History Medical History Abscess of skin or subcutaneous tissue Heroin abuse Family & Social History Safety & Behavioral: Feels Safe in Current Yes Environment Been Physically Hurt or No Threatened By a Person Tobacco & Substance use: Tobacco type cigarettes,cannabis/marijuana Smoking Status Current every day smoker alcohol intake current alcohol intake frequency holiday/special occasion Substance Use Type marijuana,crack/cocaine,heroin,methamphetamine, prescription drug Meds Home Medications and Allergies Home Medications Medication Instructions Recorded Confirmed Type methadone 40 mg soluble tablet 120 mg PO DAILY 12/29/18 01/17/23 History Allergies Allergy/AdvReac Type Severity Reaction Status Date / Time amoxicillin Allergy Severe Anaphylaxis Verified 01/17/23 13:02 tetracycline Allergy Verified 01/17/23 13:02 Review of Systems Review of Systems ROS: Yes All systems reviewed with the patient and are negative except as otherw ise documented Exam Vital Signs (past 8 hours): - 01/17/23 17:01 Pulse Rate 85 Blood Pressure 124/68 Pulse Oximetry 100 Oxygen Delivery Method Room Air Oxygen Delivery Method Room Air Narrative Exam Narrative: Gen: Alert, oriented, well-developed 57 y.o. male, mildly anxious HEENT: normocephalic, atraumatic, conjunctiva clear, sclera non-icteric, oral mucosa pink and moist Neck: supple, full ROM, no JVD, trachea is midline Resp: Lungs CTA, non-labored breathing CV: RRR, no murmur or rubs Abd: soft, non-tender, normoactive BTs Skin: 10-12 cm indurated area on left lateral buttock, no drainage, but warmer than surrounding tissue Neuro: Alert and oriented X 4 w/no focal deficits. Speech clear and coherent. Extremities: moves all 4 extremities, is ambulatory, negative Sruthi?s sign Psyche: normal mood and affect. Objective Labs 01/17/23 19:20 01/17/23 19:20 Labs: Laboratory Results - last 24 hr 01/17/23 01/17/23 01/17/23 19:20 19:20 19:20 WBC 18.1 H RBC 4.10 L Hgb 10.8 L Hct 33.0 L MCV 80.4 MCH 26.2 MCHC 32.6 RDW 16.5 H Plt Count 260 Neut % (Auto) 73.9 Lymph % (Auto) 12.2 L [place] % (Auto) 12.1 Eos % (Auto) 1.6 L Baso % (Auto) 0.2 Neut # (Auto) 03331 H Lymph # (Auto) 2200 [place] # (Auto) 2200 H Eos # (Auto) 300 Baso # (Auto) 0 Sodium 131 L Potassium 3.7 Chloride 94 L Carbon Dioxide 30 BUN 15 Creatinine 0.54 L Estimated GFR > 60 BUN/Creatinine Ratio 27.8 H Glucose 81 Lactate 0.7 Calcium 8.1 L Magnesium 1.7 Total Bilirubin 0.4 AST 56 ALT 91 H Alkaline Phosphatase 380 H C-Reactive Protein 20.1 H Total Protein 6.5 Albumin 3.2 L Globulin 3.3 Albumin/Globulin Ratio 1.0 SARS-CoV-2 (PCR) 01/17/23 21:21 WBC RBC Hgb Hct MCV MCH MCHC RDW Plt Count Neut % (Auto) Lymph % (Auto) [place] % (Auto) Eos % (Auto) Baso % (Auto) Neut # (Auto) Lymph # (Auto) [place] # (Auto) Eos # (Auto) Baso # (Auto) Sodium Potassium Chloride Carbon Dioxide BUN Creatinine Estimated GFR BUN/Creatinine Ratio Glucose Lactate Calcium Magnesium Total Bilirubin AST ALT Alkaline Phosphatase C-Reactive Protein Total Protein Albumin Globulin Albumin/Globulin Ratio SARS-CoV-2 (PCR) Negative Assessment & Plan Assessment & Plan narrative: Rosalio Green is placed into observation overnight for IV antibiotics and anticipated surgical washout in the morning. Cutaneous abscess of the left buttock, acute and present on admission - IV ceftriaxone and vancomycin - Surgery will see him in the morning for likely surgical I and D Hyponatremia acute, present on admission - sodium is 131 - correct w/NS at 150 ml/hour' Opioid dependence, currently on methadone maintenance - will need to confirm his normal methadone dose with [facility] - consult ordered History of MRSA + wound - was MRSA wound positive in 2019 - have ordered nasal MRSA PCR Other independent historians: None Discussion of results, plan of care with independent HCP/other: ED provider Reviewed outside records: N/A VTE Prophylaxis: Wells risk score 0 X Bilateral SCDs Pharmacological VTE p rophylaxis contraindicated in the setting of anticipated surgery. Patient is placed into observation as his stay is not expected to exceed 2 midnights. FEN: IV fluids: , diet: general, NPO past midnight, labs: CBC, C/BMP, liver enzymes, Mag, PT/INR Consultants Dr. Rodas, General Surgery, care and involvement in the patient?s care is appreciated. Social determinants of health: substance abuse Dispo: probable d/c to home after surgery Code status: Full code as discussed with the patient who identifies friend, Blayne Willis as his surrogate and POA. [X] I have utilized all available immediate resources to obtain, update, or review of the patient's current medications VTE Deep Vein Thrombosis/Pulmonary Embolism Present on Admission: No MIPS - Admit I confirm the patient?s Advance Care Plan is present, Code status is documented, Surrogate decision maker is in patient?s record: Yes MIPS - DC The patient has current or prior documentation of left ventricular ejection fraction (LVEF) less than 40%, or moderate or severely depressed left ventricular systolic function.: No COVID-19 COVID-19 status: Negative Result date/Date tested (Pos, Neg/Pending): 01/17/23 Time Spent With Patient Critical Care time: I spent a total of [] minutes of critical care time on this patient's care today; this time is exclusive of procedural time. Quality VTE Deep Vein Thrombosis/Pulmonary Embolism Present on Admission: No
[2023-01-17 22:46] VITALS: BP 126/71; PULSE 74; RESP 20; TEMP 36.6; O2SAT 96
[2023-01-17] MEDS: SODIUM CHLORIDE 0.9% 1,000 ML 150 ML IV (23:10)
[2023-01-18] VITALS (16 sets, daily range): BP systolic 98–145; BP diastolic 50–86; PULSE 69–81; RESP 13–20; TEMP 36.2–36.9; O2SAT 95–99; BMI 25.0
[2023-01-18 00:52] LABS: MRSA (Nasal) PCR Not Detected (Not Detect)
[2023-01-18 05:39] LABS: Add Manual Diff / Slide Review NO; Basophils Absolute Auto 100 /uL (0-100); Basophils Percent Auto 0.3 % (0-2); Eosinophils Absolute Auto 300 /uL (0-450); Eosinophils Percent Auto 1.6 % (2-4); Hematocrit 29.6 % (41-53); Hemoglobin 9.8 g/dL (13.5-17.5); Lymphocytes Absolute Auto 2100 /uL (1100-4500); Lymphocytes Percent Auto 12.8 % (25-40); Mean Corpuscular HGB Conc 33.1 % (30-36); Mean Corpuscular Hemoglobin 26.6 PG (26-34); Mean Corpuscular Volume 80.4 fL (80-100); Monocytes Absolute Auto 1900 /uL (0-900); Monocytes Percent Auto 11.9 % (3-14); Neutrophils Absolute Auto 11900 /uL (1500-7000); Neutrophils Percent Auto 73.4 % (50-75); Platelet Count 247 X10^3/uL (150-400); Red Blood Cell Count 3.68 X10^6/uL (4.5-5.9); Red Cell Distribution Width 16.5 % (11.6-14.8); White Blood Cell Count 16.3 X10^3/uL (4.5-11.0)
[2023-01-18 05:44] LABS: Alanine Aminotransferase 75 IU/L (<50); Albumin 2.6 g/dL (3.5-5.0); Albumin Globulin Ratio 0.9 (1.0-2.8); Alkaline Phosphatase 355 U/L (38-126); Aspartate Aminotransferase 54 IU/L (17-59); Bilirubin Total 0.1 mg/dL (0.2-1.3); Blood Urea Nitrogen 13 mg/dL (9-20); Calcium 7.3 mg/dL (8.4-10.2); Carbon Dioxide 29 mmol/L (22-32); Chloride 100 mmol/L (98-107); Estimated Glomerular Filt Rate > 60 mL/min (>60); Glucose 82 mg/dL (70-100); HEMOLYSIS < 15 (0-50); Potassium 3.7 mmol/L (3.4-5.1); Sodium 134 mmol/L (137-145); Total Protein 5.6 g/dL (6.3-8.2)
[2023-01-18] MEDS: VANCOMYCIN 1,250 MG/250 ML PIGGYBACK 250 MG IV ×2 (07:47→16:57)
[2023-01-18] MEDS: HYDROMORPHONE 1 MG INJ IV ×2 (07:58→19:39)
--- NOTE | 2023-01-18 11:23 | CM.IDA ---
Initial DCP Assessment Patient is 57 y/o male who presents to due to concern for abscess wound on buttock for the last several days. Patient endorses he used Methamphetamine earlier this week. Patient does not have a current PCP, [facility]. NEURORADIOLOGIST enters room to meet with patient, patient presents as A/Ox4. Patient endorses that he resides in [place] with friends. Patient endorses he drives and is independent with ADLs. Patient endorses he will need a ride upon d/c. Patient has daily maintenance Methadone 120mg through [employer], it is reported that they transport him daily during Saturday-Saturday, and dosing for Saturday. There is current [place] in EMR for [facility], NEURORADIOLOGIST calls [facility] ([phone]) and speaks with dosing specialist, she confirms patient's daily dosing and 120mg rx for Methadone. It is reported that patient engages with counseling there as well. [employer] requests confirmation of patient's d/c to coordinate continued daily dosing, patient will need dosing while at and for Saturday if he is to d/c on Saturday. Patient is awaiting I and D surgery today. Plan: f/u with patient's POC after surgery, patient will need Medicaid Taxi transportation upon d/c, f/u with [facility] upon d/c and ensure patient has daily dosing for Saturday01/20/23. OPAL Vogel Discharge Planning/Care Management CM Discharge Assessment Start: 01/18/23 11:21 Freq: Status: Active Protocol: Document 01/18/23 11:22 LN (Rec: 01/18/23 11:23 LN [id number]) Discharge Planning Assessment Assigned Monogram And Letter Paster OPAL [place] Advance Directives? No History Provided By Patient,Medical Record Has Patient been admitted in last 30 No days? Prior Living Arrangements House Household Members friend(s) Type of transporation used prior to Drives own vehicle admit Independent with ADL's Yes Is patient alert and oriented? Yes Transportation Arrangement Patient will need transportation upon d/c, likely medicaid taxi Referrals Initiated None needed Please Provide Date Initial DC 01/17/23 Assessment Was Performed
[2023-01-18] MEDS: METHADONE 10 MG TABLET 120 MG PO (12:02)
--- NOTE | 2023-01-18 13:52 | PC.NURSE ---
Day shift: Pt off unit for procedure at approx 1345.
[2023-01-18] MEDS: LACTATED RINGERS 1,000 ML 100 ML IV (14:14)
--- NOTE | 2023-01-18 14:36 | PM.CN ---
History of Present Illness Consult details Date Patient Seen: 01/18/23 Time Patient Seen: 14:36 Chief complaint: Abscess Narrative: 57-year-old man admitted to the hospital with a large left gluteal abscess. He is a history of injection drug use was injecting heroin 1 week. No evidence of foreign body on CT pelvis. Meds Home Medications and Allergies Home Medications Medication Instructions Recorded Confirmed Type methadone 40 mg soluble tablet 120 mg PO DAILY 12/29/18 01/17/23 History Allergies Allergy/AdvReac Type Severity Reaction Status Date / Time amoxicillin Allergy Severe Anaphylaxis Verified 01/17/23 13:02 tetracycline Allergy Verified 01/17/23 13:02 Exam Vital Signs (past 8 hours): - 01/18/23 08:19 01/18/23 08:00 01/18/23 14:15 Temperature 97.9 F 98.2 F Pulse Rate 75 69 Respiratory Rate 16 16 Blood Pressure 98/62 103/64 Pulse Oximetry 98 95 98 Oxygen Delivery Method Room Air Room Air Oxygen Flow Rate 0 Oxygen Delivery Method Room Air Oxygen Flow Rate 0 Narrative Exam Narrative: General adult man alert oriented no acute distress Chest nonlabored respiration Abdomen soft nontender nondistended Objective Labs 01/18/23 04:57 01/18/23 04:57 Labs: Laboratory Results - last 24 hr 01/17/23 01/17/23 01/17/23 19:20 19:20 19:20 WBC 18.1 H RBC 4.10 L Hgb 10.8 L Hct 33.0 L MCV 80.4 MCH 26.2 MCHC 32.6 RDW 16.5 H Plt Count 260 Neut % (Auto) 73.9 Lymph % (Auto) 12.2 L [place] % (Auto) 12.1 Eos % (Auto) 1.6 L Baso % (Auto) 0.2 Neut # (Auto) 73875 H Lymph # (Auto) 2200 [place] # (Auto) 2200 H Eos # (Auto) 300 Baso # (Auto) 0 Sodium 131 L Potassium 3.7 Chloride 94 L Carbon Dioxide 30 BUN 15 Creatinine 0.54 L Estimated GFR > 60 BUN/Creatinine Ratio 27.8 H Glucose 81 Lactate 0.7 Calcium 8.1 L Magnesium 1.7 Total Bilirubin 0.4 AST 56 ALT 91 H Alkaline Phosphatase 380 H C-Reactive Protein 20.1 H Total Protein 6.5 Albumin 3.2 L Globulin 3.3 Albumin/Globulin Ratio 1.0 Nasal Screen MRSA (PCR) SARS-CoV-2 (PCR) 01/17/23 01/17/23 01/18/23 21:21 23:31 04:57 WBC 16.3 H RBC 3.68 L Hgb 9.8 L Hct 29.6 L MCV 80.4 MCH 26.6 MCHC 33.1 RDW 16.5 H Plt Count 247 Neut % (Auto) 73.4 Lymph % (Auto) 12.8 L [place] % (Auto) 11.9 Eos % (Auto) 1.6 L Baso % (Auto) 0.3 Neut # (Auto) 53317 H Lymph # (Auto) 2100 [place] # (Auto) 1900 H Eos # (Auto) 300 Baso # (Auto) 100 Sodium Potassium Chloride Carbon Dioxide BUN Creatinine Estimated GFR BUN/Creatinine Ratio Glucose Lactate Calcium Magnesium Total Bilirubin AST ALT Alkaline Phosphatase C-Reactive Protein Total Protein Albumin Globulin Albumin/Globulin Ratio Nasal Screen MRSA (PCR) Not detected SARS-CoV-2 (PCR) Negative 01/18/23 04:57 WBC RBC Hgb Hct MCV MCH MCHC RDW Plt Count Neut % (Auto) Lymph % (Auto) [place] % (Auto) Eos % (Auto) Baso % (Auto) Neut # (Auto) Lymph # (Auto) [place] # (Auto) Eos # (Auto) Baso # (Auto) Sodium 134 L Potassium 3.7 Chloride 100 Carbon Dioxide 29 BUN 13 Creatinine 0.50 L Estimated GFR > 60 BUN/Creatinine Ratio 26.0 H Glucose 82 Lactate Calcium 7.3 L Magnesium Total Bilirubin 0.1 L AST 54 ALT 75 H Alkaline Phosphatase 355 H C-Reactive Protein Total Protein 5.6 L Albumin 2.6 L Globulin 3.0 Albumin/Globulin Ratio 0.9 L Nasal Screen MRSA (PCR) SARS-CoV-2 (PCR) [facility] Medical History Abscess of skin or subcutaneous tissue Heroin abuse Social History household members: friend(s) Tobacco & Substance Use Smoking Status: Current every day smoker alcohol intake: current substance use type: heroin and IV drugs Assessment & Plan Assessment and plan (1) Abscess of skin or subcutaneous tissue: Status: Acute Assessment & Plan narrative: 57-year-old man with IV drug abuse abscess which requires incision and drainage. Overview of the operation was discussed patient. Risks including bleeding ongoing infection need for prolonged wound care were discussed. Questions have been answered he is in agreement with this plan. He provides his verbal and written consent to proceed. Time Spent With Patient Critical Care time: I spent a total of [] minutes of critical care time on this patient's care today; this time is exclusive of procedural time.
--- NOTE | 2023-01-18 15:36 | PM.PN.1 ---
Subjective Subjective Interval history: 57 Male with PMH of heroin use admitted with buttock abscess. Will undergo surgical I&D today with general surgery. Exam Vital Signs (past 8 hours): - 01/18/23 08:19 01/18/23 08:00 01/18/23 14:15 Temperature 97.9 F 98.2 F Pulse Rate 75 69 Respiratory Rate 16 16 Blood Pressure 98/62 103/64 Pulse Oximetry 98 95 98 Oxygen Delivery Method Room Air Room Air Oxygen Flow Rate 0 Oxygen Delivery Method Room Air Oxygen Flow Rate 0 Narrative Exam Narrative: Gen: Alert, oriented, well-developed 57 y.o. male, mildly anxious HEENT: normocephalic, atraumatic, conjunctiva clear, sclera non-icteric, oral mucosa pink and moist Neck: supple, full ROM, no JVD, trachea is midline Resp: Lungs CTA, non-labored breathing CV: RRR, no murmur or rubs Abd: soft, non-tender, normoactive BTs Neuro: Alert and oriented X 4 w/no focal deficits. Speech clear and coherent. Extremities: no edema or joint effusions Psyche: normal mood and affect. Objective Labs 01/18/23 04:57 01/18/23 04:57 Labs: Laboratory Results - last 24 hr 01/17/23 01/17/23 01/17/23 19:20 19:20 19:20 WBC 18.1 H RBC 4.10 L Hgb 10.8 L Hct 33.0 L MCV 80.4 MCH 26.2 MCHC 32.6 RDW 16.5 H Plt Count 260 Neut % (Auto) 73.9 Lymph % (Auto) 12.2 L [place] % (Auto) 12.1 Eos % (Auto) 1.6 L Baso % (Auto) 0.2 Neut # (Auto) 47809 H Lymph # (Auto) 2200 [place] # (Auto) 2200 H Eos # (Auto) 300 Baso # (Auto) 0 Sodium 131 L Potassium 3.7 Chloride 94 L Carbon Dioxide 30 BUN 15 Creatinine 0.54 L Estimated GFR > 60 BUN/Creatinine Ratio 27.8 H Glucose 81 Lactate 0.7 Calcium 8.1 L Magnesium 1.7 Total Bilirubin 0.4 AST 56 ALT 91 H Alkaline Phosphatase 380 H C-Reactive Protein 20.1 H Total Protein 6.5 Albumin 3.2 L Globulin 3.3 Albumin/Globulin Ratio 1.0 Nasal Screen MRSA (PCR) SARS-CoV-2 (PCR) 01/17/23 01/17/23 01/18/23 21:21 23:31 04:57 WBC 16.3 H RBC 3.68 L Hgb 9.8 L Hct 29.6 L MCV 80.4 MCH 26.6 MCHC 33.1 RDW 16.5 H Plt Count 247 Neut % (Auto) 73.4 Lymph % (Auto) 12.8 L [place] % (Auto) 11.9 Eos % (Auto) 1.6 L Baso % (Auto) 0.3 Neut # (Auto) 60131 H Lymph # (Auto) 2100 [place] # (Auto) 1900 H Eos # (Auto) 300 Baso # (Auto) 100 Sodium Potassium Chloride Carbon Dioxide BUN Creatinine Estimated GFR BUN/Creatinine Ratio Glucose Lactate Calcium Magnesium Total Bilirubin AST ALT Alkaline Phosphatase C-Reactive Protein Total Protein Albumin Globulin Albumin/Globulin Ratio Nasal Screen MRSA (PCR) Not detected SARS-CoV-2 (PCR) Negative 01/18/23 04:57 WBC RBC Hgb Hct MCV MCH MCHC RDW Plt Count Neut % (Auto) Lymph % (Auto) [place] % (Auto) Eos % (Auto) Baso % (Auto) Neut # (Auto) Lymph # (Auto) [place] # (Auto) Eos # (Auto) Baso # (Auto) Sodium 134 L Potassium 3.7 Chloride 100 Carbon Dioxide 29 BUN 13 Creatinine 0.50 L Estimated GFR > 60 BUN/Creatinine Ratio 26.0 H Glucose 82 Lactate Calcium 7.3 L Magnesium Total Bilirubin 0.1 L AST 54 ALT 75 H Alkaline Phosphatase 355 H C-Reactive Protein Total Protein 5.6 L Albumin 2.6 L Globulin 3.0 Albumin/Globulin Ratio 0.9 L Nasal Screen MRSA (PCR) SARS-CoV-2 (PCR) [facility] Medical History Abscess of skin or subcutaneous tissue Heroin abuse Social History (Updated 12/29/18 @ 12:47 by Dahlia Brito DO) household members: friend(s) Smoking Status: Current every day smoker alcohol intake: current substance use type: heroin and IV drugs Assessment & Plan Assessment & Plan narrative: Rosalio Green is a 57 M with H of heroin use on methadone admitted with left buttock abscess. Cutaneous abscess of the left buttock, acute and present on admission - IV ceftriaxone and vancomycin to continue, hx MRSA infection in the past in 2019 - OR today for I&D with surgery, follow up cultures after OR Hyponatremia acute, present on admission - sodium is 131 on admit, improved to 1334 with fluids. - can stop IV fluids after OR today. Opioid dependence, currently on methadone maintenance - continue methadone 120 mg daily - SW consult ordered Dispo: inpatient, likely discharge home in a couple of days after I&D. Consultants: General surgery Social determinants of health: substance abuse Code status: Full code as discussed with the patient who identifies friend, Blayne Willis as his surrogate and POA. COVID-19 COVID-19 status: Negative Result date/Date tested (Pos, Neg/Pending): 01/17/23 Time Spent With Patient Critical Care time: I spent a total of [] minutes of critical care time on this patient's care today; this time is exclusive of procedural time. Quality VTE Deep Vein Thrombosis/Pulmonary Embolism Present on Admission: No
--- NOTE | 2023-01-18 15:40 | PM.OP.1 ---
Operative Date/Time/Diagnoses Date of procedure: 01/18/23 Time of procedure: 15:40 Pre-op diagnosis: Gluteal abscess Post-op diagnosis: same Procedure & Clinicians Procedure: Incision and drainage of left gluteal abscess Same procedure as scheduled: Yes Indications: 57-year-old injection drug user with a large left gluteal abscess Surgeon: Satinder Gloria Click Yes if Unassisted: Yes Anesthesia Type: General Operative Notes Findings: 500 mL of purulent drainage Specimen(s): other (Gluteal abscess) Estimated Blood Loss (mL): 50 Procedure in detail: Patient was brought to the operating room placed supine on the table. General anesthesia was induced and he was intubated with a LMA. He was then placed into the right lateral decubitus position and appropriately padded with a beanbag. He was then prepped and draped in sterile fashion. Time-out was performed. A cruciate incision over the area of fluctuance on the left buttock was made. There was approximately 500 mL of purulent drainage. Cultures were taken. Wound was then pulse lavaged. Hemostasis was achieved. Loculations within the wound were broken bluntly. One roll of Kerlix was then packed into the cavity of the wound. Patient emerged from anesthesia was transferred to recovery room in stable condition. Complications: none Post-operative Condition: stable Disposition: Acute Care
--- NOTE | 2023-01-18 15:43 | SUR.OPER ---
Addendum entered by Nathaly Bobo R.N. 01/18/23 15:43: patients cell phone brought to OR with patient and then brought to PACU. Penis piercing left in place. Original Note: right Lateral on a moraes bag, head on pillow, gel axillary roll in place, bottom leg bent with gel pad under knee to foot, upper leg straight and supported with pillows. Upper arm supported by pillows and secured over bottom arm to padded arm board. Safety belt at torso, tape over blanket lower legs.
[2023-01-18] MEDS: HYDROMORPHONE 2 MG INJ (16:05)
[2023-01-18] MEDS: LORazepam 2 MG/ML INJ 0.25 MG IV ×2 (16:14→16:15)
--- NOTE | 2023-01-18 16:25 | SUR.PHASEI ---
Explained to patient that due to illicit drug use and methadone use, patient wont respond to pain medss as a person who does not use them. Pt. nods. Working on relaxation, distraction and staying calm. Lorazapam helped him relax. Report called to 218 RN. transported to floor with his cell phone. Dressing was reinforced with a second ABD
[2023-01-18 19:09] LABS: Acinetobacter baumannii Not Detected (Not Detect); Candida albicans Not Detected (Not Detect); Candida glabrata Not Detected (Not Detect); Candida krusei Not Detected (Not Detect); Candida parapsilosis Not Detected (Not Detect); Candida tropicalis Not Detected (Not Detect); E. coli Not Detected (Not Detect); Enterobacter cloacae complex Not Detected (Not Detect); Enterobacteriaceae species Not Detected (Not Detect); Enterococcus species Not Detected (Not Detect); Haemophilus influenzae Not Detected (Not Detect); Listeria monocytogenes Not Detected (Not Detect); Methicillin-resistant gene Not Detected (Not Detect); Neisseria meningitidis Not Detected (Not Detect); Proteus species Not Detected (Not Detect); Pseudomonas aeruginosa Not Detected (Not Detect); Serratia marcescens Not Detected (Not Detect); Staphylococcus species Detected (Not Detect); Streptococcus agalactiae (Gr B Not Detected (Not Detect); Streptococcus pneumonia Not Detected (Not Detect); Streptococcus pyogenes (Gr A) Not Detected (Not Detect); Streptococcus species Not Detected (Not Detect)
[2023-01-18] MEDS: cefTRIAXone 1,000 MG in SODIUM CHLORIDE 0.9% 100 ML 200 MG IV (19:27)
[2023-01-18] MEDS: ACETAMINOPHEN 325 MG TABLET 650 MG PO (19:38)
[2023-01-19 00:21] VITALS: BP 101/60; PULSE 64; RESP 18; TEMP 35.9; O2SAT 99
[2023-01-19] MEDS: VANCOMYCIN 1,250 MG/250 ML PIGGYBACK 250 MG IV (01:43)
--- NOTE | 2023-01-19 02:46 | PC.NURSE ---
Nightshift Pt used call light and notified RN that his bed was wet. Central Line was found removed and down by Pt's waist/knee area. Vancomycin was being administered. Pt does not recall removing central line, Pt states I just woke up and my bed was wet. Provider Flakito was notified. Provider Campbell assessed Pt and site. Provider Campbell will call for another central line to be placed.
--- NOTE | 2023-01-19 06:22 | DI.RAD.S_ITS ---
PROCEDURE: XR CHEST 1V INDICATIONS: Status post PICC TECHNIQUE: One view of the chest was acquired. COMPARISON: [facility], CR, XR CHEST 1V, 01/19/2023, 6:52. [facility], CR, XR CHEST 1V, 01/17/2023, 19:13. FINDINGS: Surgical changes and devices: Left-sided PICC line demonstrates apparent [place] overlying the brachiocephalic vein and then extending cephalad into the internal jugular vein. Lungs and pleura: Calcification is noted overlying the left base suggestive granuloma. No pleural effusions or pneumothorax. Mediastinum: Mediastinal contours appear normal. Heart size is normal. Bones and chest wall: No suspicious bony lesions. Overlying soft tissues appear unremarkable. IMPRESSION: Left PICC line as above. Repositioning is recommended. Calcification overlying the left lower lobe likely related to granulomatous disease. The above findings are concordant with preliminary report. Dictated by: Nazia Early M.D. on 01/19/2023 at 7:58 Approved by: Nazia Early M.D. on 01/19/2023 at 8:00
--- NOTE | 2023-01-19 06:50 | DI.RAD.S_ITS ---
PROCEDURE: XR CHEST 1V INDICATIONS: Status post PICC TECHNIQUE: One view of the chest was acquired. COMPARISON: [facility], CR, XR CHEST 1V, 01/19/2023, 6:26. FINDINGS: Surgical changes and devices: PICC line is present with distal tip overlying the atrial caval junction. Lungs and pleura: Left lung base calcification likely related to granulomatous disease. No pleural effusions or pneumothorax. Mediastinum: Mediastinal contours appear normal. Heart size is normal. Bones and chest wall: No suspicious bony lesions. Overlying soft tissues appear unremarkable. IMPRESSION: Left PICC line as above. The above findings are concordant with preliminary report. Dictated by: Nazia Early M.D. on 01/19/2023 at 8:00 Approved by: Nazia Early M.D. on 01/19/2023 at 8:00
[2023-01-19 07:52] VITALS: O2SAT 98
[2023-01-19 09:34] LABS: Add Manual Diff / Slide Review NO; Basophils Absolute Auto 100 /uL (0-100); Basophils Percent Auto 0.6 % (0-2); Eosinophils Absolute Auto 200 /uL (0-450); Eosinophils Percent Auto 1.5 % (2-4); Hematocrit 30.1 % (41-53); Lymphocytes Absolute Auto 2700 /uL (1100-4500); Lymphocytes Percent Auto 22.1 % (25-40); Mean Corpuscular HGB Conc 33.1 % (30-36); Mean Corpuscular Hemoglobin 26.8 PG (26-34); Mean Corpuscular Volume 81.1 fL (80-100); Monocytes Absolute Auto 1000 /uL (0-900); Monocytes Percent Auto 8.5 % (3-14); Neutrophils Absolute Auto 8200 /uL (1500-7000); Neutrophils Percent Auto 67.3 % (50-75); Platelet Count 252 X10^3/uL (150-400); Red Blood Cell Count 3.71 X10^6/uL (4.5-5.9); White Blood Cell Count 12.3 X10^3/uL (4.5-11.0)
[2023-01-19] MEDS: METHADONE 10 MG TABLET 120 MG PO (09:39)
[2023-01-19 09:40] LABS: Alanine Aminotransferase 56 IU/L (<50); Albumin 2.7 g/dL (3.5-5.0); Albumin Globulin Ratio 0.8 (1.0-2.8); Alkaline Phosphatase 306 U/L (38-126); Aspartate Aminotransferase 30 IU/L (17-59); BUN Creatinine Ratio 26.1 (6-22); Blood Urea Nitrogen 12 mg/dL (9-20); Calcium 7.7 mg/dL (8.4-10.2); Carbon Dioxide 32 mmol/L (22-32); Chloride 100 mmol/L (98-107); Estimated Glomerular Filt Rate > 60 mL/min (>60); Globulin 3.2 g/dL (1.7-4.1); Glucose 106 mg/dL (70-100); HEMOLYSIS < 15 (0-50); Potassium 3.7 mmol/L (3.4-5.1); Sodium 137 mmol/L (137-145); Total Protein 5.9 g/dL (6.3-8.2)
[2023-01-19] MEDS: VANCOMYCIN TROUGH 1 REQUEST MISC (09:40)
[2023-01-19 09:45] LABS: Bilirubin Total < 0.1 mg/dL (0.2-1.3)
[2023-01-19 09:46] LABS: Vancomycin Trough < 5.0 ug/mL (10-20)
[2023-01-19 10:17] VITALS: BP 105/70; PULSE 65; RESP 16; TEMP 35.7; O2SAT 98
[2023-01-19] MEDS: VANCOMYCIN 1,500 MG/300 ML PIGGYBACK 200 MG IV ×2 (10:30→17:43)
--- NOTE | 2023-01-19 11:18 | PC.NURSE ---
Day shift: The RN from Pt's Methadone clinic called just now and was updated by this senior medical writer.
[2023-01-19] MEDS: HYDROMORPHONE 1 MG INJ IV ×2 (12:34→13:31)
--- NOTE | 2023-01-19 13:26 | P.PN_ITS ---
Subjective Subjective Interval history: 57 Male with PMH of heroin use admitted with buttock abscess. Had surgical I&D yesterday with general surgery. No new complaints. Exam Vital Signs (past 8 hours): - 01/19/23 07:52 Pulse Oximetry 98 Oxygen Delivery Method Room Air Oxygen Delivery Method Room Air Oxygen Flow Rate 0 Narrative Exam Narrative: Gen: Alert, oriented, well-developed 57 y.o. male, mildly anxious HEENT: normocephalic, atraumatic, conjunctiva clear, sclera non-icteric, oral mucosa pink and moist Neck: supple, full ROM, no JVD, trachea is midline Resp: Lungs CTA, non-labored breathing CV: RRR, no murmur or rubs Abd: soft, non-tender, normoactive BTs Neuro: Alert and oriented X 4 w/no focal deficits. Speech clear and coherent. Extremities: no edema or joint effusions Psyche: normal mood and affect. Objective Labs 01/19/23 09:15 01/19/23 09:15 Labs: Laboratory Results - last 24 hr 01/17/23 01/19/23 01/19/23 19:50 09:15 09:15 WBC 12.3 H RBC 3.71 L Hgb 10.0 L Hct 30.1 L MCV 81.1 MCH 26.8 MCHC 33.1 RDW 17.0 H Plt Count 252 Neut % (Auto) 67.3 Lymph % (Auto) 22.1 L [place] % (Auto) 8.5 Eos % (Auto) 1.5 L Baso % (Auto) 0.6 Neut # (Auto) 8200 H Lymph # (Auto) 2700 [place] # (Auto) 1000 H Eos # (Auto) 200 Baso # (Auto) 100 Sodium Potassium Chloride Carbon Dioxide BUN Creatinine Estimated GFR BUN/Creatinine Ratio Glucose Calcium Total Bilirubin AST ALT Alkaline Phosphatase Total Protein Albumin Globulin Albumin/Globulin Ratio Vancomycin Trough < 5.0 L A. baumannii (PCR) Not detected Charley albicans (PCR) Not detected C. glabrata (PCR) Not detected C. krusei (PCR) Not detected C. parapsilosis (PCR) Not detected C. tropicalis (PCR) Not detected Enterobacteriac sp PCR Not detected E. cloacae complex PCR Not detected Enterococcus sp PCR Not detected E. coli (PCR) Not detected H. influenzae (PCR) Not detected Klebsiella oxytoca PCR Not detected Klebsiella pneumoniae Not detected List. monocytogenes PCR Not detected N. meningitidis (PCR) Not detected Proteus species (PCR) Not detected Serratia marcescens PCR Not detected Staphylococcus sp PCR Detected H Staph aureus (PCR) Not detected mecA-Methicil Res Gene Not detected Streptococcus sp PCR Not detected Group A Strep (PCR) Not detected Strep agalactiae (PCR) Not detected Strep pneumoniae (PCR) Not detected P. aeruginosa (PCR) Not detected KPC-Carbap Res Gene PCR Not Reportable 01/19/23 09:15 WBC RBC Hgb Hct MCV MCH MCHC RDW Plt Count Neut % (Auto) Lymph % (Auto) [place] % (Auto) Eos % (Auto) Baso % (Auto) Neut # (Auto) Lymph # (Auto) [place] # (Auto) Eos # (Auto) Baso # (Auto) Sodium 137 Potassium 3.7 Chloride 100 Carbon Dioxide 32 BUN 12 Creatinine 0.46 L Estimated GFR > 60 BUN/Creatinine Ratio 26.1 H Glucose 106 H Calcium 7.7 L Total Bilirubin < 0.1 L AST 30 ALT 56 H Alkaline Phosphatase 306 H Total Protein 5.9 L Albumin 2.7 L Globulin 3.2 Albumin/Globulin Ratio 0.8 L Vancomycin Trough A. baumannii (PCR) Charley albicans (PCR) C. glabrata (PCR) C. krusei (PCR) C. parapsilosis (PCR) C. tropicalis (PCR) Enterobacteriac sp PCR E. cloacae complex PCR Enterococcus sp PCR E. coli (PCR) H. influenzae (PCR) Klebsiella oxytoca PCR Klebsiella pneumoniae List. monocytogenes PCR N. meningitidis (PCR) Proteus species (PCR) Serratia marcescens PCR Staphylococcus sp PCR Staph aureus (PCR) mecA-Methicil Res Gene Streptococcus sp PCR Group A Strep (PCR) Strep agalactiae (PCR) Strep pneumoniae (PCR) P. aeruginosa (PCR) KPC-Carbap Res Gene PCR [facility] Medical History Abscess of skin or subcutaneous tissue Heroin abuse Social History (Updated 12/29/18 @ 12:47 by Dahlia Brito DO) household members: friend(s) Smoking Status: Current every day smoker alcohol intake: current substance use type: heroin and IV drugs Assessment & Plan Assessment & Plan narrative: Cutaneous abscess of the left buttock, acute and present on admission - IV ceftriaxone and vancomycin to continue, hx MRSA infection in the past in 2019 - OR yesterday for I&D with surgery, follow up cultures show wound with positive staph aureua and blood with staph aureus and gram positive cocci - will continue to follow - WBC decreasing to 12.3 now Hyponatremia acute, present on admission - sodium is 131 on admit, improved to 137 today. Opioid dependence, currently on methadone maintenance - continue methadone 120 mg daily- progam he is with in the community apparently not open on Sundays - SW consult ordered - patient indicates pain control is adequate Dispo: inpatient, discharge home after I&D stable post op and cultures positive tests have definitive treatment Social determinants of health: substance abuse Code status: Full code as discussed with the patient who identifies friend, Blayne Willis as? his surrogate and POA. COVID-19 COVID-19 status: Negative Result date/Date tested (Pos, Neg/Pending): 01/17/23 Time Spent With Patient Critical Care time: I spent a total of [] minutes of critical care time on this patient's care today; this time is exclusive of procedural time. Quality VTE Deep Vein Thrombosis/Pulmonary Embolism Present on Admission: No
--- NOTE | 2023-01-19 13:41 | CM.MNRNOTE ---
Day shift: Dressing changed and repacked by Dr David today at approx 1340. She stated that the Pt tolerated it well. Medicated for pain per VINNY and with IV Dilaudid (2mg) total.
--- NOTE | 2023-01-19 13:44 | PM.PN.1 ---
Subjective Subjective Interval history: Mr. Green states he is doing okay. He has not had the opportunity to see the wound he is having pain in his buttock overlying the I and D site. He has some insight and is under treatment for opioid misuse disorder he says that he slipped up? and that he does not intend to have that happen again. He did use a clean needle but he understands that the injection could have been contaminated with bacteria. He is appropriately remorseful and rinsing of his intention to continue to try to overcome his is illness of opiate disorder. He does regularly go to the methadone clinic in [facility] though he lives in [place]. Exam Vital Signs (past 8 hours): - 01/19/23 07:52 Pulse Oximetry 98 Oxygen Delivery Method Room Air Oxygen Delivery Method Room Air Oxygen Flow Rate 0 Narrative Exam Narrative: Mr. Belcher is awake alert oriented pleasant and in no acute distress. The wound on his left buttock is dressed and the dressing is somewhat soiled with serosanguineous dressing. Incision is a cruciate incision and packed with a Kerlix gauze. On removal of the Kerlix the cavity underlying the cruciate incision is approximately 15 cm by 10 cm by 4 cm in depth. Approximately 8-9 feet of Kerlix dressing is removed. This was replaced with probably about 5 ft of clean saline soaked Kerlix the wound is hemostatic and no purulent drainage is appreciated there is significant erythema around the incision still present. The wound is very tender but appropriate for the pathology Objective Labs 01/19/23 09:15 01/19/23 09:15 Labs: Laboratory Results - last 24 hr 01/17/23 01/19/23 01/19/23 19:50 09:15 09:15 WBC 12.3 H RBC 3.71 L Hgb 10.0 L Hct 30.1 L MCV 81.1 MCH 26.8 MCHC 33.1 RDW 17.0 H Plt Count 252 Neut % (Auto) 67.3 Lymph % (Auto) 22.1 L [place] % (Auto) 8.5 Eos % (Auto) 1.5 L Baso % (Auto) 0.6 Neut # (Auto) 8200 H Lymph # (Auto) 2700 [place] # (Auto) 1000 H Eos # (Auto) 200 Baso # (Auto) 100 Sodium Potassium Chloride Carbon Dioxide BUN Creatinine Estimated GFR BUN/Creatinine Ratio Glucose Calcium Total Bilirubin AST ALT Alkaline Phosphatase Total Protein Albumin Globulin Albumin/Globulin Ratio Vancomycin Trough < 5.0 L A. baumannii (PCR) Not detected Charley albicans (PCR) Not detected C. glabrata (PCR) Not detected C. krusei (PCR) Not detected C. parapsilosis (PCR) Not detected C. tropicalis (PCR) Not detected Enterobacteriac sp PCR Not detected E. cloacae complex PCR Not detected Enterococcus sp PCR Not detected E. coli (PCR) Not detected H. influenzae (PCR) Not detected Klebsiella oxytoca PCR Not detected Klebsiella pneumoniae Not detected List. monocytogenes PCR Not detected N. meningitidis (PCR) Not detected Proteus species (PCR) Not detected Serratia marcescens PCR Not detected Staphylococcus sp PCR Detected H Staph aureus (PCR) Not detected mecA-Methicil Res Gene Not detected Streptococcus sp PCR Not detected Group A Strep (PCR) Not detected Strep agalactiae (PCR) Not detected Strep pneumoniae (PCR) Not detected P. aeruginosa (PCR) Not detected KPC-Carbap Res Gene PCR Not Reportable 01/19/23 09:15 WBC RBC Hgb Hct MCV MCH MCHC RDW Plt Count Neut % (Auto) Lymph % (Auto) [place] % (Auto) Eos % (Auto) Baso % (Auto) Neut # (Auto) Lymph # (Auto) [place] # (Auto) Eos # (Auto) Baso # (Auto) Sodium 137 Potassium 3.7 Chloride 100 Carbon Dioxide 32 BUN 12 Creatinine 0.46 L Estimated GFR > 60 BUN/Creatinine Ratio 26.1 H Glucose 106 H Calcium 7.7 L Total Bilirubin < 0.1 L AST 30 ALT 56 H Alkaline Phosphatase 306 H Total Protein 5.9 L Albumin 2.7 L Globulin 3.2 Albumin/Globulin Ratio 0.8 L Vancomycin Trough A. baumannii (PCR) Charley albicans (PCR) C. glabrata (PCR) C. krusei (PCR) C. parapsilosis (PCR) C. tropicalis (PCR) Enterobacteriac sp PCR E. cloacae complex PCR Enterococcus sp PCR E. coli (PCR) H. influenzae (PCR) Klebsiella oxytoca PCR Klebsiella pneumoniae List. monocytogenes PCR N. meningitidis (PCR) Proteus species (PCR) Serratia marcescens PCR Staphylococcus sp PCR Staph aureus (PCR) mecA-Methicil Res Gene Streptococcus sp PCR Group A Strep (PCR) Strep agalactiae (PCR) Strep pneumoniae (PCR) P. aeruginosa (PCR) KPC-Carbap Res Gene PCR PFSH Medical History Abscess of skin or subcutaneous tissue Heroin abuse Social History (Updated 12/29/18 @ 12:47 by Dahlia Brito DO) household members: friend(s) Smoking Status: Current every day smoker alcohol intake: current substance use type: heroin and IV drugs Assessment & Plan Assessment and plan (1) Abscess of skin or subcutaneous tissue: Qualifiers: Site of cutaneous abscess: buttock Qualified Code(s): L02.31 - Cutaneous abscess of buttock Status: Acute (2) Opioid dependence, in remission: Status: Acute Assessment & Plan narrative: Mr. Green did very well with his 1st dressing change. He is tolerating the pain as well as could be expected. I would definitely recommend continuing his regular dose of methadone. I would continue IV vancomycin and ceftriaxone until the staph aureus speciates and we can be sure that it is not MRSA. Also I would monitor the erythema and continue antibiotics IV until the erythema is improved as well. Once he is on a stable antibiotic regimen and tolerating regular food with pain controlled he may be discharged with close follow-up in the General surgery or wound care clinic. If he can not be taught to do his own dressing changes home health will need to be arranged. Time Spent With Patient Critical Care time: I spent a total of [] minutes of critical care time on this patient's care today; this time is exclusive of procedural time. Quality VTE Deep Vein Thrombosis/Pulmonary Embolism Present on Admission: No
[2023-01-19] MEDS: polyethylene glycoL 3350 17 GM POWD.PACK PO (14:30)
[2023-01-19] MEDS: DOCUSATE 100 MG CAPSULE PO ×2 (14:30→20:42)
--- NOTE | 2023-01-19 14:32 | CM.DPNOTE ---
Discharge Planning Note: Dr Baez in for first post op dressing change, s/p I&D of buttock abscess yesterday, 01/18/23. Significant wound with surrounding erythema, on IV ABX. Patient will need Home Health upon DC for wound care. Plan: Discuss Home Health with patient and send referral(s) to [facility] or [facility]. Discharge when medically cleared. He will need to continue receiving his daily Methadone at the [facility]. Call them upon DC ([phone]). [facility], he will need Medicaid Taxi transport on dc. Sandra Hendrix RN/DCP
[2023-01-19 19:00] VITALS: O2SAT 98
[2023-01-19 20:26] VITALS: BP 112/68; PULSE 58; RESP 12; TEMP 36.3; O2SAT 96
[2023-01-19] MEDS: cefTRIAXone 1,000 MG in SODIUM CHLORIDE 0.9% 100 ML 200 MG IV (20:41)
[2023-01-19] MEDS: SENNOSIDES 8.6 MG TABLET 17.2 MG PO (20:42)
[2023-01-20] MEDS: VANCOMYCIN 1,500 MG/300 ML PIGGYBACK 200 MG IV ×2 (02:47→11:33)
[2023-01-20 07:09] LABS: Hematocrit 29.4 % (41-53); Hemoglobin 9.8 g/dL (13.5-17.5); Mean Corpuscular HGB Conc 33.1 % (30-36); Mean Corpuscular Volume 81.4 fL (80-100); Platelet Count 275 X10^3/uL (150-400); Red Blood Cell Count 3.61 X10^6/uL (4.5-5.9); Red Cell Distribution Width 16.5 % (11.6-14.8); White Blood Cell Count 10.3 X10^3/uL (4.5-11.0)
[2023-01-20 07:10] LABS: Add Manual Diff / Slide Review YES
[2023-01-20 07:18] VITALS: O2SAT 98
[2023-01-20 07:18] LABS: Alanine Aminotransferase 48 IU/L (<50); Albumin 2.7 g/dL (3.5-5.0); Albumin Globulin Ratio 0.8 (1.0-2.8); Alkaline Phosphatase 273 U/L (38-126); Aspartate Aminotransferase 27 IU/L (17-59); Blood Urea Nitrogen 11 mg/dL (9-20); Calcium 7.7 mg/dL (8.4-10.2); Carbon Dioxide 29 mmol/L (22-32); Chloride 103 mmol/L (98-107); Estimated Glomerular Filt Rate > 60 mL/min (>60); Globulin 3.3 g/dL (1.7-4.1); Glucose 88 mg/dL (70-100); HEMOLYSIS < 15 (0-50); Potassium 4.1 mmol/L (3.4-5.1); Sodium 137 mmol/L (137-145)
[2023-01-20 07:27] LABS: Bilirubin Total < 0.1 mg/dL (0.2-1.3)
[2023-01-20 07:29] LABS: C-Reactive Protein Quant 10.3 mg/dL (<1.0)
[2023-01-20 07:31] LABS: Procalcitonin 0.09 ng/mL (<0.5)
[2023-01-20 07:35] LABS: Anisocytosis 2+; Neutrophils Absolute Manual 5871 /uL (3000-5900); Total Cells Counted 100
[2023-01-20] MEDS: DOCUSATE 100 MG CAPSULE PO ×2 (08:07→20:24)
[2023-01-20 09:00] VITALS: TEMP 36.1
[2023-01-20 09:10] VITALS: BP 125/80; PULSE 60; RESP 18; TEMP 36.1; O2SAT 99
[2023-01-20] MEDS: METHADONE 10 MG TABLET 120 MG PO (10:46)
[2023-01-20 11:02] LABS: Vancomycin Trough 11.7 ug/mL (10-20)
--- NOTE | 2023-01-20 12:46 | P.PN_ITS ---
Subjective Subjective Interval history: 57 Male with PMH of heroin use admitted with buttock abscess. Had surgical I&D 2 days ago with general surgery. No new complaints. Exam Vital Signs (past 8 hours): - 01/20/23 07:18 01/20/23 09:10 01/20/23 09:00 Temperature 96.9 F L 96.9 F L Pulse Rate 60 Respiratory Rate 18 Blood Pressure 125/80 Pulse Oximetry 98 99 Oxygen Delivery Method Room Air Oxygen Flow Rate 0 Oxygen Delivery Method Room Air Oxygen Flow Rate 0 Narrative Exam Narrative: Gen: Alert, oriented, well-developed 57 y.o. male, mildly anxious HEENT: normocephalic, atraumatic, conjunctiva clear, sclera non-icteric, oral mucosa pink and moist Neck: supple, full ROM, no JVD, trachea is midline Resp: Lungs CTA, non-labored breathing CV: RRR, no murmur or rubs Abd: soft, non-tender, normoactive BTs Neuro: Alert and oriented X 4 w/no focal deficits. Speech clear and coherent. Extremities: no edema or joint effusions, left buttock wound dressed Psyche: normal mood and affect. Objective Labs 01/20/23 06:50 01/20/23 06:50 Labs: Laboratory Results - last 24 hr 01/20/23 01/20/23 01/20/23 06:50 06:50 10:35 WBC 10.3 RBC 3.61 L Hgb 9.8 L Hct 29.4 L MCV 81.4 MCH 27.0 MCHC 33.1 RDW 16.5 H Plt Count 275 Neut % (Auto) Not Reportable Lymph % (Auto) Not Reportable [place] % (Auto) Not Reportable Eos % (Auto) Not Reportable Baso % (Auto) Not Reportable Lymph # (Auto) Not Reportable [place] # (Auto) Not Reportable Baso # (Auto) Not Reportable Total Counted 100 Seg Neutrophils % 52.0 Band Neutrophils % 5.0 Lymphocytes % (Manual) 31.0 Atypical Lymphs % 2.0 H Monocytes % (Manual) 6.0 Eosinophils % (Manual) 3.0 Metamyelocytes % 1.0 H Neutrophils # (Manual) 5871 RBC Morphology Not Reportable Anisocytosis 2+ H Sodium 137 Potassium 4.1 Chloride 103 Carbon Dioxide 29 BUN 11 Creatinine 0.50 L Estimated GFR > 60 BUN/Creatinine Ratio 22.0 Glucose 88 Calcium 7.7 L Total Bilirubin < 0.1 L AST 27 ALT 48 Alkaline Phosphatase 273 H C-Reactive Protein 10.3 H Total Protein 6.0 L Albumin 2.7 L Globulin 3.3 Albumin/Globulin Ratio 0.8 L Procalcitonin 0.09 Vancomycin Trough 11.7 PFSH Medical History Abscess of skin or subcutaneous tissue Heroin abuse Social History (Updated 12/29/18 @ 12:47 by Dahlia Brito DO) household members: friend(s) Smoking Status: Current every day smoker alcohol intake: current substance use type: heroin and IV drugs Assessment & Plan Assessment & Plan narrative: Cutaneous abscess of the left buttock, acute and present on admission - IV ceftriaxone and vancomycin , hx MRSA infection in the past in 2019. - OR yesterday for I&D with surgery, follow up cultures show wound with positive staph aureua and blood with staph aureus and gram positive cocci - will continue to follow. Today buttock + for staph aureus and blood + for staph epi - both sensitive to Cipro, will do 500 mg BID for 2 weeks, assess EKG tomorrow to look at QT - WBC decreasing to 12.3 yesterday and now normal Hyponatremia acute, present on admission - sodium is 131 on admit, improved to 137 today. Opioid dependence, currently on methadone maintenance - continue methadone 120 mg daily- progam he is with in the community apparently not open on Sundays, if stable tomorrow we will discharge with community wound care if this can be arranged appropriately. - SW consult ordered - patient indicates pain control is adequate Dispo: inpatient,? discharge home after I&D stable post op and cultures positive tests have definitive treatment Social determinants of health: substance abuse Code status: Full code as discussed with the patient who identifies friend, Blayne Willis as? his surrogate and POA. Time Spent With Patient Critical Care time: I spent a total of [] minutes of critical care time on this patient's care today; this time is exclusive of procedural time. Quality VTE Deep Vein Thrombosis/Pulmonary Embolism Present on Admission: No
[2023-01-20] MEDS: CIPROFLOXACIN 250 MG TABLET 500 MG PO ×2 (13:09→20:24)
[2023-01-20] MEDS: HYDROMORPHONE 2 MG INJ IV (14:56)
--- NOTE | 2023-01-20 15:07 | CM.DPNOTE ---
Discharge Planning Note: See previous CM notes. [facility]/Medicaid insurance. Patient receives Methadone maintenance daily at [facility] who also provides his transport from [place] to and from the clinic. He will need near daily wound care to buttocks surgical wound (from abscess, s/p I&D on 01/[address] Baez). Dr Diane wants to keep patient until tomorrow and if stable to DC then. Plan: If medically cleared, discharge to home. Call [facility] to coordinate wound care for surgical buttocks wound when he is at the clinic for daily Methadone. Fax discharge summary with wound care orders to [facility]. Who will follow for wound care? Dr Baze or refer to Wound care clinic? (Patient drives, not appropriate for , plus surgeon wants near daily wound care).
--- NOTE | 2023-01-20 15:27 | PM.PN.1 ---
Subjective Subjective Interval history: Doing okay today no complaints or questions. Exam Vital Signs (past 8 hours): - 01/20/23 09:10 01/20/23 09:00 Temperature 96.9 F L 96.9 F L Pulse Rate 60 Respiratory Rate 18 Blood Pressure 125/80 Pulse Oximetry 99 Oxygen Flow Rate 0 Oxygen Delivery Method Room Air Oxygen Flow Rate 0 Narrative Exam Narrative: Awake alert pleasant and appropriate Wound on left buttocks with less erythema and the more darkened hue on the skin surrounding cruciate incision. The wound itself is not foul smelling or draining. The wet-to-dry dressing is removed replaced with new moist saline Kerlix. Objective Labs 01/20/23 06:50 01/20/23 06:50 Labs: Laboratory Results - last 24 hr 01/20/23 01/20/23 01/20/23 06:50 06:50 10:35 WBC 10.3 RBC 3.61 L Hgb 9.8 L Hct 29.4 L MCV 81.4 MCH 27.0 MCHC 33.1 RDW 16.5 H Plt Count 275 Neut % (Auto) Not Reportable Lymph % (Auto) Not Reportable [place] % (Auto) Not Reportable Eos % (Auto) Not Reportable Baso % (Auto) Not Reportable Lymph # (Auto) Not Reportable [place] # (Auto) Not Reportable Baso # (Auto) Not Reportable Total Counted 100 Seg Neutrophils % 52.0 Band Neutrophils % 5.0 Lymphocytes % (Manual) 31.0 Atypical Lymphs % 2.0 H Monocytes % (Manual) 6.0 Eosinophils % (Manual) 3.0 Metamyelocytes % 1.0 H Neutrophils # (Manual) 5871 RBC Morphology Not Reportable Anisocytosis 2+ H Sodium 137 Potassium 4.1 Chloride 103 Carbon Dioxide 29 BUN 11 Creatinine 0.50 L Estimated GFR > 60 BUN/Creatinine Ratio 22.0 Glucose 88 Calcium 7.7 L Total Bilirubin < 0.1 L AST 27 ALT 48 Alkaline Phosphatase 273 H C-Reactive Protein 10.3 H Total Protein 6.0 L Albumin 2.7 L Globulin 3.3 Albumin/Globulin Ratio 0.8 L Procalcitonin 0.09 Vancomycin Trough 11.7 PFSH Medical History Abscess of skin or subcutaneous tissue Heroin abuse Social History (Updated 12/29/18 @ 12:47 by Dahlia Brito DO) household members: friend(s) Smoking Status: Current every day smoker alcohol intake: current substance use type: heroin and IV drugs Assessment & Plan Assessment and plan (1) Abscess of skin or subcutaneous tissue: Qualifiers: Site of cutaneous abscess: buttock Qualified Code(s): L02.31 - Cutaneous abscess of buttock Status: Acute (2) Bloodstream infection: Status: Acute Assessment & Plan narrative: 11/19 Blood cultures did grow staph epidermidis. The buttock wound grew staph aureus which is not MRSA. The abscess cavity looks good I would continue wet-to-dry packing with Kerlix daily. He explains that there is a wound care nurse in his methadone clinic here in [place]. He goes daily to this clinic and so she could do daily dressing changes. It is kind of difficult for him to reach that area to do it himself. Additionally I will provide my clinic follow-up information and he can follow-up with me as needed. Time Spent With Patient Critical Care time: I spent a total of [] minutes of critical care time on this patient's care today; this time is exclusive of procedural time. Quality VTE Deep Vein Thrombosis/Pulmonary Embolism Present on Admission: No
[2023-01-20 19:00] VITALS: BP 128/77; PULSE 66; RESP 12; TEMP 36.5; O2SAT 97
[2023-01-20] MEDS: SENNOSIDES 8.6 MG TABLET 17.2 MG PO (20:24)
[2023-01-20] MEDS: SODIUM CHLORIDE 0.9% FLUSH 10 ML IV (20:24)
[2023-01-21 05:37] LABS: BUN Creatinine Ratio 23.7 (6-22); Blood Urea Nitrogen 14 mg/dL (9-20); Calcium 8.3 mg/dL (8.4-10.2); Carbon Dioxide 31 mmol/L (22-32); Chloride 102 mmol/L (98-107); Estimated Glomerular Filt Rate > 60 mL/min (>60); Glucose 89 mg/dL (70-100); HEMOLYSIS < 15 (0-50); Hematocrit 33.9 % (41-53); Mean Corpuscular HGB Conc 32.3 % (30-36); Mean Corpuscular Hemoglobin 26.4 PG (26-34); Mean Corpuscular Volume 81.6 fL (80-100); Platelet Count 358 X10^3/uL (150-400); Potassium 4.2 mmol/L (3.4-5.1); Red Blood Cell Count 4.15 X10^6/uL (4.5-5.9); Red Cell Distribution Width 16.7 % (11.6-14.8); Sodium 138 mmol/L (137-145); White Blood Cell Count 10.9 X10^3/uL (4.5-11.0)
[2023-01-21 05:50] LABS: Add Manual Diff / Slide Review YES
[2023-01-21 06:07] LABS: Anisocytosis 1+; Neutrophils Absolute Manual 7521 /uL (3000-5900); Total Cells Counted 100
[2023-01-21] MEDS: CIPROFLOXACIN 250 MG TABLET 500 MG PO (06:27)
[2023-01-21 07:00] VITALS: BP 147/85; PULSE 63; RESP 18; TEMP 36.1; O2SAT 97
[2023-01-21] MEDS: METHADONE 10 MG TABLET 120 MG PO (08:38)
[2023-01-21] MEDS: DOCUSATE 100 MG CAPSULE PO (08:38)
[2023-01-21] MEDS: SODIUM CHLORIDE 0.9% FLUSH 10 ML IV (08:44)
--- NOTE | 2023-01-21 09:08 | CM.DPC ---
Addendum entered by RHETT Maldonado 01/21/23 13:37: ADD: JOSE RAFAEL called [facility] and they will fill the meds now and should be done in about 15 min. Call from [facility] transport and [employer] volunteer will provide transport around 1415 by ER entrance. JOSE RAFAEL updated RN and she will help go down early with pt and poultry picker meds and then get him to ER entrance for the ride home. BF Addendum entered by RHETT Maldonado 01/21/23 12:14: ADD: JOSE RAFAEL faxed Medicaid transport request form and waiting to hear back and MD requests SW support with confirming pt's Senna and Cipro are covered by insurance as he needs these two this evening as 2x day dosing. Pt's pharmacy is either [facility] [place] or through [facility]. SW faxed meds to [facility] but they state it can take an hour to get faxes and have not received yet. JOSE RAFAEL spoke to [facility] and they requested meds be faxed to [facility] as they get their meds through this pharmacy and can likely cover the cost if any copays needed. JOSE RAFAEL faxed meds to [facility] to review and awaiting call back from Medicaid taxi on time of transport today. BF Original Note: DCP Discharge SW called [facility] per Surgeon's request and discussion with JOSE RAFAEL yesterday to confirm they can help with dressing changes at discharge since he is transported there once a day for Methadone tx. JOSE RAFAEL spoke to YANNICK Strange at [facility] and provided update on the dressing change recommendations and faxed [facility] pt's clinicals to review with wound care recommendations to review and they will manage his dressing changes to his buttock and will provide the transportation. [facility] requests d/c summary be faxed when pt discharged and plan is for pt to get his Methadone here prior to d/c today and they will manage methadone doses after today and to have his dressing changed here at the hospital and they will do the dressing changes daily starting tomorrow and will schedule transport to his f/u appointment with Surgeon Dr. Baez. Plan: SW to likely schedule Medicaid transport for d/c to home today and to fax d/c summary to [facility]. RHETT Maldonado
--- NOTE | 2023-01-21 11:42 | P.DS_ITS ---
History of Present Illness History of Present Illness Date Patient Seen: 01/21/23 Chief complaint: Abscess Narrative: Patient eager to go home and continue with his methadone prescriptions with his outpatient clinic as well as wound care. Discharge Providers Provider Date of admission: 01/17/23 21:38 Discharge Date: 01/21/23 Primary care physician: Doctor Keila MD Consults: 01/17/23 21:10 Consult to Physician Routine Comment: Consulting Provider: Demetrio Rodas Reason for consultation: buttock abscess Has provider been notified: Yes 01/17/23 23:04 Consult to Pharmacy Routine Comment: [facility] methadone mt. needs dose confirmed 01/19/23 05:48 Consult After Hours PICC Line RN Routine Comment: Discharge provider: Karon Griggs MD Summary Hospital Course Discharge Diagnosis: Cutaneous abscess of the left buttock, acute and present on admission Hyponatremia acute, present on admission Heroin abuse Opioid dependence, currently on methadone maintenance in the community Hospital Course: Rosalio Green?is a 57-year-old gentleman with history of marijuana, heroin, methamphetamine abuse and MRSA abscess who presented to the emergency department with a wound to his left buttock for the last 5-7 days. Stated it started to hurt immediately after injecting himself and became very large, swollen, red and painful.? He is on methadone maintenance, stating he takes 120 mg daily however states that this is not helping him with his pain, last taken this morning.? He is seen at the [facility]. He endorsed having a bright red tongue, states it is not super painful but it is new in it started at the same time is this large wound on his left buttock.? Stated he thinks it started with 3 discrete ab scesses that have grown into one and there is underlying pus surrounded by, very red skin and swelling. Patient can barely lie on it due to the pain on presentation. There is no discharge from the wound, but after receiving his first dose of antibiotic, stated it felt less painful.? Patient denied fever but endorsed chills and has had some nausea but no vomiting. Chest xray ordered in the ED was unremarkable, pelvis CT reported: There is a lobulated thick-walled subcutaneous fluid collection in the left gluteal region involving the superficial aspect of the left gluteus rick muscle which demonstrates asymmetric edema and enlargement.? This measures approximately 11.3 x 4.5 x 10.4 cm.? There is adjacent subcutaneous edema in the left gluteal region.? No sinus tracts or intraperitoneal extension.? He is afebrile, blood pressure 126/71 heart rate 74 respiratory rate 20 oxygen saturation of 96% on room air he weighs 77 kg with a BMI of 25.? He does have an elevated white count of 18.1 with a left shift, mildly anemic with a hemoglobin and hematocrit of 10.8 and 33 sodium is 131 chloride 94 creatinine 0.54 ALT is 91 Alk-phos 380 CRP is 20.1 albumin 3.2 and COVID-19 PCR is negative. General surgery was consulted and performed incision and drainage of left g luteal abscess. White blood count was elevated on presentation however at the time of discharge had 2 days of normal white blood count. There was mild hyponatremia on presentation which corrected to normal prior to discharge. Normal throughout the hospital stay. Creatinine was low consistent with poor oral intake. Initially the patient was placed on ceftriaxone and vancomycin intravenously. Once culture results for the wound and blood were known the patient was transitioned to oral Cipro at 500 mg b.i.d. culture was positive for staph aureus and blood culture was positive for staph epidermidis. Both were sensitive to Cipro and that is why this oral antibiotic was chosen. Patient to take Cipro 500 mg b.i.d. through the end of February 02, 2023. Patient will follow-up at [facility] for both methadone suspension and wound care. Status at Discharge Cognitive/behavioral status at discharge: oriented Functional status at discharge: independent ambulation Overall status at discharge: patient is progressing back to baseline Time Spent with Patient Time spent: Greater than 30 minutes Exam Vital Signs (past 8 hours): - 01/21/23 07:00 01/21/23 07:00 Temperature 96.9 F L Pulse Rate 63 Respiratory Rate 18 Blood Pressure 147/85 H Pulse Oximetry 97 97 Oxygen Delivery Method Room Air Oxygen Flow Rate 4 Oxygen Delivery Method Room Air Oxygen Flow Rate 4 Narrative Exam Narrative: Gen: Alert, oriented, well-developed 57 y.o. male, mildly anxious HEENT: normocephalic, atraumatic, conjunctiva clear, sclera non-icteric, oral mucosa pink and moist Neck: supple, full ROM, no JVD, trachea is midline Resp: Lungs CTA, non-labored breathing CV: RRR, no murmur or rubs Abd: soft, non-tender, normoactive BTs Neuro: Alert and oriented X 4 w/no focal deficits. Speech clear and coherent. Extremities: no edema or joint effusions, left buttock wound dressed Psyche: normal mood and affect. Objective Labs 01/21/23 05:00 01/21/23 05:00 Labs: Laboratory Results - last 24 hr 01/21/23 01/21/23 05:00 05:00 WBC 10.9 RBC 4.15 L Hgb 11.0 L Hct 33.9 L MCV 81.6 MCH 26.4 MCHC 32.3 RDW 16.7 H Plt Count 358 Neut % (Auto) Not Reportable Lymph % (Auto) Not Reportable [place] % (Auto) Not Reportable Eos % (Auto) Not Reportable Baso % (Auto) Not Reportable Lymph # (Auto) Not Reportable [place] # (Auto) Not Reportable Baso # (Auto) Not Reportable Total Counted 100 Seg Neutrophils % 65.0 Band Neutrophils % 4.0 Lymphocytes % (Manual) 23.0 L Monocytes % (Manual) 7.0 Eosinophils % (Manual) 1.0 L Neutrophils # (Manual) 7521 H RBC Morphology See below Anisocytosis 1+ H Sodium 138 Potassium 4.2 Chloride 102 Carbon Dioxide 31 BUN 14 Creatinine 0.59 L Estimated GFR > 60 BUN/Creatinine Ratio 23.7 H Glucose 89 Calcium 8.3 L [facility] Medical History Abscess of skin or subcutaneous tissue Heroin abuse Social History (Updated 12/29/18 @ 12:47 by Dahlia Brito DO) household members: friend(s) Smoking Status: Current every day smoker alcohol intake: current substance use type: heroin and IV drugs Discharge Plan Discharge Plan Patient Disposition: Home Provider Discharge Comment: In the process of clarifying whether Cipro and sennosides will be covered with his insurance at [facility] Patient will be discharge with Medicaid taxi and can stop at pharmacy on the way home. Today prior to discharge the patient has dressing change and his dose of methadone for today. Discharge orders & Medications Prescriptions: New ciprofloxacin HCl 250 mg Tablet 500 mg PO 0700,2100 Qty: 50 0RF sennosides [senna] 8.6 mg Tablet 17.2 mg PO BEDTIME Qty: 30 0RF Continued methadone 40 mg Tablet,Soluble 120 mg PO DAILY Follow up/Referrals: Ruth Baez MD [Physician] - (Follow-up with wound care daily for dressing changes instructions included in this discharge paperwork. Call and make an appointment to see me as needed in the clinic.) Doctor Pedraza MD [Primary Care Provider] - Skin/Wound/Dressing Care Dressing: Pack wound with moistened saline Kerlix daily. Cover with dry 4x4s and tape. Please do dressing change changes daily. Visit Report/Discharge Packet Stand Alone Forms: Patient Portal/API, Stroke Signs & Symptoms Discharge Data Primary Care Provider: Doctor Keila Quality VTE Deep Vein Thrombosis/Pulmonary Embolism Present on Admission: No
--- NOTE | 2023-01-21 14:24 | PC.NURSE ---
Pt is A&OX3, VSS, afebrile on RA. She
--- NOTE | 2023-01-21 14:25 | PC.NURSE ---
Pt is A&OX4. VSS, afebrile on RA. He is ambulatory in the room independently. He reports pain is tolerable to L buttock where wound is this a.m. He is cleared for discharge this a.m. and transportation arranged by CM, prescriptions sent to [facility]. Dressing is changed to L buttock and he is supplied with a couple dressings as well as educated on wound care. He verbalizes understanding of site care, medications, and activity. He is escorted to ER exit for discharge home via arranged transportation via .
== END 2023-01-21 14:00 | disposition home or self-care (01) | DRG 383 ==
LOC: ED 20:07 → AC 01-18 08:40
PROVIDERS: Neuromusculoskeletal Medicine, Sports Medicine; Nurse Practitioner Critical Care Medicine; Surgery; Admitting Provider Nurse Practitioner Family; Emergency Provider Emergency Medicine; Visit Provider Nurse Practitioner Family
PROC: 0Y910ZX Drainage of Left Buttock, Open Approach, Diagnostic (ICD-10-PCS; principal; 2023-01-18 15:00)
DX: L02.31 Cutaneous abscess of buttock (principal); E87.1 Hypo-osmolality and hyponatremia; F17.210 Nicotine dependence, cigarettes, uncomplicated; F11.20 Opioid dependence, uncomplicated; B95.7 Other staphylococcus as the cause of diseases classified elsewhere; Z20.822 Contact with and (suspected) exposure to COVID-19
CPT/HCPCS: 10060; 36415; 36556; 36592; 71045; 72193; 80048; 80053; 80202; 83605; 83735; 84145; 85007; 85025; 86140; 87040; 87070; 87075; 87077; 87147; 87150; 87185; 87186; 87205; 87635; 87797; 93005; 96365; 96366; 96367; 96372; 96375; 99221; 99284; C9803; J0696; J1170; J1642; J1885; J2060; J2250; J2405; J2704; Q9967

== ENCOUNTER → 2023-02-01 09:36 | Outpatient (CLI) | payer OTHER, MEDICAID, SELFPAY ==
[2023-01-23 10:23] VITALS: BMI 25.0
== END ==
PROVIDERS: PCP Nurse Practitioner; Referring Provider Nurse Practitioner; Visit Provider Nurse Practitioner Family
DX: S31.829A Unspecified open wound of left buttock, initial encounter (principal); T81.89XA Other complications of procedures, not elsewhere classified, initial encounter; F11.90 Opioid use, unspecified, uncomplicated
CPT/HCPCS: 11042; 99203; 99213

== ENCOUNTER → 2023-02-15 09:38 | Outpatient (CLI) | payer OTHER, MEDICAID, SELFPAY ==
[2023-01-23 10:23] VITALS: BMI 25.0
== END ==
PROVIDERS: PCP Nurse Practitioner; Referring Provider Nurse Practitioner; Visit Provider Nurse Practitioner Family
DX: T81.89XA Other complications of procedures, not elsewhere classified, initial encounter (principal); S31.829A Unspecified open wound of left buttock, initial encounter; R21 Rash and other nonspecific skin eruption; F19.11 Other psychoactive substance abuse, in remission
CPT/HCPCS: 11042

== ENCOUNTER → 2023-03-01 11:07 | Outpatient (CLI) | payer OTHER, MEDICAID, SELFPAY ==
[2023-01-23 10:23] VITALS: BMI 25.0
== END ==
PROVIDERS: PCP Nurse Practitioner; Referring Provider Nurse Practitioner; Visit Provider Nurse Practitioner Family
DX: S31.829A Unspecified open wound of left buttock, initial encounter (principal); T81.89XA Other complications of procedures, not elsewhere classified, initial encounter
CPT/HCPCS: 11042; 99212

== ENCOUNTER → 2023-03-08 10:57 | Outpatient (CLI) | payer OTHER, MEDICAID, SELFPAY ==
[2023-01-23 10:23] VITALS: BMI 25.0
== END ==
PROVIDERS: PCP Nurse Practitioner; Referring Provider Nurse Practitioner; Visit Provider Nurse Practitioner Family
DX: T81.89XA Other complications of procedures, not elsewhere classified, initial encounter (principal); S31.829A Unspecified open wound of left buttock, initial encounter; F19.11 Other psychoactive substance abuse, in remission
CPT/HCPCS: 97597

== ENCOUNTER → 2023-03-15 11:17 | Outpatient (CLI) | payer OTHER, MEDICAID, SELFPAY ==
[2023-01-23 10:23] VITALS: BMI 25.0
== END ==
PROVIDERS: PCP Nurse Practitioner; Referring Provider Nurse Practitioner; Visit Provider Nurse Practitioner Family
DX: S31.829D Unspecified open wound of left buttock, subsequent encounter (principal); F19.11 Other psychoactive substance abuse, in remission; T81.89XD Other complications of procedures, not elsewhere classified, subsequent encounter
CPT/HCPCS: 99212; 99213